=== PATIENT | female | born 1955 | race Caucasian/White ===

== ENCOUNTER 2023-11-11 17:00 | Emergency (ER) | payer MEDICARE, SELFPAY ==
[2023-11-11 17:02] VITALS: BP 162/68
[2023-11-11 17:06] VITALS: BMI 22.8
--- NOTE | 2023-11-11 17:37 | ED.GENMED ---
History of Present Illness
<Adeline Jimenez PA-C - Last Filed: 11/11/23 20:31>
General
Chief Complaint: Weakness
Source: patient
Exam Limitations: none
Time Seen by Provider: 11/11/23 17:30
Nursing documentation reviewed up to this point in time: agreed with
Travel History
Have you had any contact with someone who has COVID-19?: No
Do you have any symptoms of coronavirus? Fever > 100 degrees, chills, cough, shortness of breath, sore throat, loss of taste or smell, muscle aches, or headache?: No
History of Present Illness
History of Present Illness:
This is a 68-year-old female with a past medical history of previous lacunar infarct, postconcussive syndrome, sarcoidosis, kidney cancer in remission, Sjogren's syndrome presenting emergency department today with concerns of multiple weeks of
weakness, fatigue, and vertigo with walking. Patient states that he first noticed this a few weeks ago and since then has been progressively getting worse. Patient states that she felt the same way when she was diagnosed with a old stroke.
Patient denies any fevers, chills, shortness of breath, chest pain, abdominal pain, constipation, diarrhea. Patient also think she may be dehydrated. Patient states that she is also decreased appetite. Patient also has some mild associated
nausea. In terms of patient's vertigo, patient states that when walking around for prolonged period of time she will get sensation that the room is spinning but then when she sits and lays down this feeling will subside. Patient denies any recent
falls or any history of head trauma. Patient denies any neck pain patient states that she will also get bouts of blurry vision.
Past History
<Adeline Jimenez PA-C - Last Filed: 11/11/23 20:31>
Past History
ED Past Medical History: None
ED Past Surgical History: Gynecological
Social History
Tobacco: Non-smoker
Alcohol: None
Drug: None
Personal:
Living: with family
Review of Systems
<Adeline Jimenez PA-C - Last Filed: 11/11/23 20:31>
Review of Systems
All Other Systems: ROS reviewed and negative except as documented in HPI and ROS
Phy Exam
<Adeline Jimenez PA-C - Last Filed: 11/11/23 20:31>
Physical Exam
Physical Exam:
General: Patient is well appearing and in no acute distress; non-toxic
Skin: Warm and dry, no rashes or lesions
Head: Normocephalic, atraumatic
Eyes: Sclera non-icteric. EOMs intact. PERRLA. No nystagmus.
Cardiac: Regular rate and rhythm, no murmur
Peripheral Vascular: No lower extremity swelling or edema
Pulm: Normal respiratory effort, no wheezes, rales, rhonchi
Abdomen: No abdominal tenderness to palpation.
Neuro: CN II-XII intact, no focal neurologic deficits. Normal gait. Normal finger-nose, heel boyle testing.
Psychiatric: Appropriate mood and affect.
Course
<Adeline Jimenez PA-C - Last Filed: 11/11/23 20:31>
Orders/Labs/Results
Orders:
Orders
11/11/23 17:55
Ondansetron Injectable [Zofran] 4 mg IV NOW STA
11/11/23 18:04
Electrocardiogram (*1) Urgent
EKG- Treatment ONCE
11/11/23 18:08
Urinalysis Reflex To Culture Urgent
Date Specimen was Collected: 11/11/23
Time Specimen was Collected: 18:02
11/11/23 18:51
Add On- LAB Urgent
Tests Added?: TSH reflex T4
11/11/23 18:52
CT Head W/o Iv Contrast Urgent
Comment:
Reason For Exam: dizziness, blurry vision
Complete Blood Count/With Diff Urgent
Comprehensive Metabolic Panel Urgent
TSH Reflex To Free T4 Urgent
Comment: ADD ON
11/11/23 20:14
0.9% Sodium Chloride 500 ml [Nss] 500 ml IV BOLUS
Abnormal Lab Results
11/11/23
18:52
WBC 4.1 L 10^3/uL
(4.8-10.8)
Hct 36.3 L %
(37.0-47.0)
Monocytes % 12.5 H %
(1.7-9.3)
Sodium 134 L mmol/L
(135-145)
BUN 34 H mg/dl
(7-17)
11/11/23 18:52
11/11/23 18:52
Vital Signs
Initial and Last Documented VS:
Initial Vital Signs
Temp Pulse Resp BP Pulse Ox
98.4 F 66 16 162/68 98
11/11/23 17:02 11/11/23 17:02 11/11/23 17:02 11/11/23 17:02 11/11/23 17:02
Last Documented Vital Signs
Temp Pulse Resp BP Pulse Ox
98.4 F 66 16 162/68 98
11/11/23 17:02 11/11/23 17:02 11/11/23 17:02 11/11/23 17:02 11/11/23 17:02
<Adam Gann DO - Last Filed: 11/11/23 19:12>
Orders/Labs/Results
Orders:
Orders
11/11/23 17:55
Ondansetron Injectable [Zofran] 4 mg IV NOW STA
11/11/23 18:04
Electrocardiogram (*1) Urgent
EKG- Treatment ONCE
11/11/23 18:08
Urinalysis Reflex To Culture Urgent
Date Specimen was Collected: 11/11/23
Time Specimen was Collected: 18:02
11/11/23 18:51
Add On- LAB Urgent
Tests Added?: TSH reflex T4
11/11/23 18:52
CT Head W/o Iv Contrast Urgent
Comment:
Reason For Exam: dizziness, blurry vision
Complete Blood Count/With Diff Urgent
Comprehensive Metabolic Panel Urgent
TSH Reflex To Free T4 Urgent
Comment: ADD ON
11/11/23 20:14
0.9% Sodium Chloride 500 ml [Nss] 500 ml IV BOLUS
Abnormal Lab Results
11/11/23
18:52
WBC 4.1 L 10^3/uL
(4.8-10.8)
Hct 36.3 L %
(37.0-47.0)
Monocytes % 12.5 H %
(1.7-9.3)
Sodium 134 L mmol/L
(135-145)
BUN 34 H mg/dl
(7-17)
11/11/23 18:52
11/11/23 18:52
Vital Signs
Initial and Last Documented VS:
Initial Vital Signs
Temp Pulse Resp BP Pulse Ox
98.4 F 66 16 162/68 98
11/11/23 17:02 11/11/23 17:02 11/11/23 17:02 11/11/23 17:02 11/11/23 17:02
Last Documented Vital Signs
Temp Pulse Resp BP Pulse Ox
98.4 F 66 16 162/68 98
11/11/23 17:02 11/11/23 17:02 11/11/23 17:02 11/11/23 17:02 11/11/23 17:02
<Adeline Jimenez PA-C - Last Filed: 11/11/23 20:31>
MDM/Problems Addressed
Differential Diagnosis Includes:
Differentials include BPPV, anemia, dehydration, infection, acute intracranial hemorrhage, posterior circulation stroke, vestibular neuritis,
MDM/Problems Addressed:
Weakness, fatigue, dizziness:
This is a 68-year-old female with a past medical history of previous lacunar infarct, postconcussive syndrome, sarcoidosis, kidney cancer in remission, Sjogren's syndrome presenting emergency department today with concerns of multiple weeks of
weakness, fatigue, and vertigo with walking. Patient states that one day a few weeks ago, she just started to feel more tired with taking naps more. She states that she also started having vertigo when walking for longer periods of time that would
resolve at rest. Patient went to urgent care but was sent here because apparently, this is how she felt when she had a stroke in the past. When reviewing her previous records, it does not appear that she ever had any acute CVA. Patient states
that she was hospitalized for a stroke here at [facility]. When looking at this hospital stay, patient was admitted for persistent dizziness and postconcussive syndrome, had a stroke workup with MRI done which revealed a chronic lacunar
infarct but no acute abnormalities or concerns. Patient also has had many episodes of dizziness in the past as well and anxiety. Considering that she is not on focal on exam, is able to walk without any difficulties, is not actively nauseous or
vomiting currently, no indication for CTA at this time, patient somewhat dehydration, her BUN to creatinine show was bit on today, did give some IV fluids. Patient stable for discharge to follow-up with her primary
<Adeline Jimenez PA-C - Last Filed: 11/11/23 20:31>
*Critical Care Note
Total Time (30-74mins, 75-104mins- exclusive of procedures): Not Applicable
ED Attending Note
Scottlt;Adeline Jimenez PA-C - Last Filed: 11/11/23 20:31>
-
Portions of this chart may have been created with voice recognition software.� Occasional wrong word or��sound alike� substitutions may have occurred due to the inherent limitations of voice recognition software.
<Adam Gann DO - Last Filed: 11/11/23 19:12>
ED Attending Note
Patient seen and examined by attending physician: Yes
I performed the substantive portion of visit, reviewed & personally made and approve the management plan that is documented in note by myself or MARKUS.: Yes
ED Attending Note:
Patient is a 68-year-old female presents to the emergency department complaining fatigue, weakness and feeling lightheaded and dizzy. Patient states when she gets up from laying down or sitting to standing that she begins to feel lightheaded and
unsteady. Patient does feels washed out all the time. This is going on for a week or 2. Patient has a history of a lacunar infarct along with Sjogren syndrome as well as sarcoid. Patient has had the symptoms in the past and been admitted
approximately 4 years ago. Patient denies any fever or chills, nasal congestion or sore throat. Patient denies shortness of breath or cough. Patient denies chest pain or palpitations. Patient admits to decreased appetite but denies any nausea,
vomiting or diarrhea. Patient denies any melena or hematochezia. Patient denies any symptoms. Patient denies any ataxia, focal weakness, visual or speech difficulties. Patient denies any hair or skin changes. Patient denies any weight
changes. On physical exam patient does not appear to be in any distress. Heart is regular without murmur or gallop. Lungs are clear. Head is normocephalic and neck is supple. Abdomen soft nontender. Neurologically the patient is intact.
Patient has no cyanosis, edema or tenderness of the extremities. Will check labs and CT. I doubt that any etiology of becoming clear. Patient referred back to her family doctor.
Discharge Plan
Departure
Patient Disposition: Home (Routine Discharge)
Date of Disposition: 11/11/23
Time of Disposition: 20:20
Patient with high blood pressure during this ER visit?: Yes
Condition: Good
Discharge Problem:
Generalized weakness
Instructions: Fatigue (DC), Generalized Weakness (DC), BLOOD PRESSURE
Prescriptions:
New
meclizine 25 mg tablet
25 mg PO BID PRN (Reason: dizziness) Qty: 10 0RF
No Action
plecanatide [Trulance] 3 MG tablet
3 mg PO DAILY
fluoxetine [Prozac] 40 MG capsule
40 mg PO DAILY
alprazolam 0.25 MG tablet
0.25 mg PO Q8HPRN PRN (Reason: anxiety)
trazodone 100 MG tablet
100 mg PO HS
cannabidiol [Epidiolex] 1 UNIT solution
1 unit PO QPM PRN (Reason: sleep)
omega 0-obg-khg-fish oil 1,000 MG capsule
2,000 mg PO DAILY
atorvastatin 40 MG tablet
40 mg PO QPM Qty: 30 0RF
sennosides [senna] 1 TABLET tablet
1 tab PO HS Qty: 30 0RF
aspirin 81 MG tablet,chewable
81 mg PO DAILY Qty: 30 0RF
acetaminophen 325 MG tablet
650 mg PO Q4HPRN PRN (Reason: CH, mild pain, or temp >100.4F) Qty: 30 0RF
lisinopril 5 MG tablet
5 mg PO Daily Qty: 15 0RF
Referrals:
Ajit Haider DO [Family Provider] -
Activity Restrictions/Additional Instructions:
Your CT scan was negative for any acute intracranial abnormality.
Please follow-up with your primary care provider. Please return emergency department should you describes chest pain, shortness of breath, palpitations, decreased urinary output, burning with urination, fevers or chills, difficulty speaking,
confusion, weakness one-sided body versus the other, difficulty walking, vision loss, or any other signs or symptoms concerning to you.
You can try meclizine as needed for your vertigo symptoms. You can take one 25 mg tablet every 6-12 hours as needed.
Interventions
Interventions:
*Risk Screen - Suicide Last Done: 11/11/23 17:06
*General Assessment Last Done: 11/11/23 17:06
*Neglect/Abuse Screening Last Done: 11/11/23 17:06
ED- Cardiac Assessment Last Done: 11/11/23 17:05
ED- Neurological Assessment Last Done: 11/11/23 17:05
ED- Pulmonary Assessment Last Done: 11/11/23 17:05
Discharge Date and Time
Print Language: SLOVAK
[2023-11-11 18:18] LABS: Urine Albumin Negative (Neg - Trace); Urine Bilirubin Negative (Negative); Urine Character Clear (Clear); Urine Color Yellow; Urine Glucose Negative (Negative); Urine Ketone Negative (Negative); Urine Leukocyte Negative (Negative); Urine Nitrite Negative (Negative); Urine Occult Blood Negative (Negative); Urine Specific Gravity 1.015 (<1.030); Urine Urobilinogen Negative (Neg - 1+)
[2023-11-11] MEDS: ZOFRAN 4 MG IV (18:56)
[2023-11-11 19:01] LABS: % Basophils 0.5 % (0-2); % Eosinophils 2.2 % (0-6); % Immature Granulocytes 0.2 % (0-0.5); % Lymphocytes 30.5 % (20.5-51.1); % Monocytes 12.5 % (1.7-9.3); % Neutrophils 54.1 % (42.2-75.2); Absolute Eosinophils 0.1 10^3/uL (0-0.7); Absolute Lymphocytes 1.2 10^3/uL (1.2-3.4); Absolute Monocytes 0.5 10^3/uL (0.1-0.6); Absolute Neutrophils 2.2 10^3/uL (1.4-6.5); Hematocrit 36.3 % (37.0-47.0); Hemoglobin 12.9 g/dL (12.0-16.0); Mean Corp Hgb Conc. 35.5 g/dL (33.0-37.0); Mean Corpuscular Hgb 29.7 pg (27.0-31.0); Mean Corpuscular Volume 83.6 fL (81.0-99.0); Mean Platelet Volume 8.5 fL (7.4-10.4); Nucleated Red Blood Cells % 0 %; Platelet Count 164 10^3/uL (130-400); Red Blood Cell Count 4.34 10^6/uL (4.20-5.40); Red Cell Dist. Width 12.9 % (11.5-14.5); White Blood Cell Count 4.1 10^3/uL (4.8-10.8)
[2023-11-11 19:16] LABS: ALT (SGPT) 18 U/L (0-35); AST (SGOT) 32 U/L (14-36); Albumin 4.7 g/dl (3.5-5.0); Alkaline Phosphatase 73 U/L (38-126); Blood Urea Nitrogen 34 mg/dl (7-17); Calcium 9.9 mg/dl (8.4-10.2); Carbon Dioxide 23 mmol/L (22-30); Chloride 103 mmol/L (98-107); Estimated Creatinine Clearance 57 ml/min; Glucose 82 mg/dl (70-99); Potassium 4.2 mmol/L (3.5-5.1); Sodium 134 mmol/L (135-145); Total Bilirubin 0.5 mg/dl (0.2-1.3); Total Protein 6.9 g/dl (6.3-8.2); eGFR > 60.00
[2023-11-11 19:51] LABS: TSH Reflex To Free T4 3.59 uIU/ml (0.47-4.68)
[2023-11-11] MEDS: NSS 500 IV (20:25)
[2023-11-11 21:28] VITALS: BP 142/63
== END 2023-11-11 22:05 | disposition home or self-care (01) ==
LOC: EMR 17:00
PROVIDERS: Physician Assistant; EMERGENCY PHYSICIAN Emergency Medicine; FAMILY PHYSICIAN Family Medicine
DX: R53.1 Weakness (principal); D86.9 Sarcoidosis, unspecified; M35.00 Sjogren syndrome, unspecified
CPT/HCPCS: 99284; 96374; 96361; 70450; 80053; 81003; 84443; 85025; 93005

== ENCOUNTER 2025-01-13 05:08 | Observation (INO) | payer BC, SELFPAY ==
[2025-01-12 18:55] VITALS: BP 183/78
[2025-01-12 19:28] LABS: Hematocrit 38.3 % (37.0-47.0); Hemoglobin 12.8 g/dL (12.0-16.0); Mean Corp Hgb Conc. 33.4 g/dL (33.0-37.0); Mean Corpuscular Volume 88.2 fL (81.0-99.0); Nucleated Red Blood Cells % 0 %; Platelet Count 213 10^3/uL (130-400); Red Cell Dist. Width 14.3 % (11.5-14.5)
[2025-01-12 19:56] LABS: Blood Urea Nitrogen 32 mg/dl (7-17); Calcium 9.3 mg/dl (8.4-10.2); Carbon Dioxide 24 mmol/L (22-30); Chloride 105 mmol/L (98-107); Glucose 86 mg/dl (70-99); Sodium 136 mmol/L (135-145); eGFR > 60.00
[2025-01-12 19:59] LABS: Troponin I < 0.012 ng/ml
[2025-01-12 21:01] VITALS: BP 155/67
[2025-01-12 21:58] VITALS: BMI 24.3
[2025-01-12 22:00] VITALS: BP 168/72
[2025-01-12 22:01] VITALS: BP 170/65
--- NOTE | 2025-01-12 22:11 | ED.GENMED ---
History of Present Illness
General
Chief Complaint: Breathing Problem
Source: patient and spouse
Exam Limitations: none
Time Seen by Provider: 01/12/25 21:57
Nursing documentation reviewed up to this point in time: agreed with
History of Present Illness
History of Present Illness:
69-year-old female with history as noted presents to the ER for evaluation of shortness of breath. Patient reports onset of symptoms about 3 weeks ago she says initially she was having some mild shortness of breath mainly at nighttime associated
with some heaviness in her chest. Over the past 3 to 4 days patient reports shortness of breath has gotten progressively worse and now she is having severe exertional symptoms. She says that today she could only walk up a short flight of stairs or
walk a few steps before she had shortness of breath to the extent that she had to stop and rest. She has had some mild heaviness in her chest and says that today she has had some right sided sharper pains with inspiration. She denies any cough.
She denies any fevers or chills or URI symptoms. She denies any swelling or pain in the legs. She did initially present to urgent care where she had chest x-ray that she says she was told there was 'blunting' on the x-ray and she was referred to
the ER. She denies any recent travel. She says that she has a history of Takotsubo cardiomyopathy years ago but has not had any heart issues since. She also has history of pneumothorax. She denies any history of DVT/PE. She does say that she
has had RSV infections in the past and presented mainly with shortness of breath rather than URI symptoms.
Past History
Past History
ED Past Medical History: None
ED Past Surgical History: Gynecological
Social History
Tobacco: Non-smoker
Alcohol: None
Drug: None
Personal:
Living: with family
Review of Systems
Review of Systems
All Other Systems: ROS reviewed and negative except as documented in HPI and ROS
Constitutional: Reports fatigue; Denies fever or chills
EENT: Denies sore throat or runny nose
Respiratory: Reports trouble breathing; Denies cough
Cardiac: Reports chest pain; Denies palpitations
ABD/GI: Denies abdominal pain
: Denies flank pain
Musculoskeletal: Denies neck pain or back pain
Neurological: Reports dizzy; Denies headache
Phy Exam
Physical Exam
Physical Exam:
General: Awake, alert, oriented x3; no acute distress
Head: Normocephalic, atraumatic
Eyes: Conjunctiva normal, sclera anicteric
Throat: Airway intact, handling secretions
Neck: Trachea midline, no JVD
Lungs: Clear to auscultation bilaterally, no wheezing, rales, rhonchi; no tachypnea, no hypoxia
Heart: Regular rate and rhythm, no murmurs, gallops, or rubs appreciated
Neuro: Grossly intact
Skin: Warm and dry
Extremities: No edema in extremities, equal pulses in all extremities
Scores
Heart Failure Risk
Heart Failure Risk Score: Not Applicable
Heart Score for Chest Pain Patients
STEMI patient?: Not applicable
Withdrawal Assessment of Alcohol
Withdrawal Assessment Completed?: Not applicable
Course
Orders/Labs/Results
Orders:
Orders
01/12/25 19:01
Electrocardiogram (*1) Urgent
Reason for Study: Other
Other Reason for Exam: Respiratory Distress
Cardiac Monitoring- Treatment ONCE
EKG- Treatment ONCE
IV Insert/Care/Rem.- Treatment PRN
CR Chest - 2 Views Urgent
Comment:
Reason For Exam: respiratory distress
O2 Therapy [RESP] Urgent
Titrate/Wean O2 to maintain O2 sat greater than (%): 93
Special Instructions: TO MAINTAIN CONTINUOUS O2 SATS >/= 93%
Pulse Ox/cont/shift [RESP] Urgent
Quantity: 1
Special Instructions: continuous pulse ox
01/12/25 19:08
Complete Blood Count/With Diff Urgent
NT-proBNP Urgent
Troponin I Urgent
01/12/25 19:11
Basic Metabolic Panel Urgent
01/12/25 23:01
COVID-19 Antigen Urgent
Source: Nasal Swab
Influenza A+B Rapid Molecular Urgent
PEACE Source: Nasal Swab
Specimen Description:
RSV [Respiratory Syncytial Virus] Urgent
PEACE Source: Nasal Swab
Specimen Description:
Date Specimen was Collected: 01/12/25
Time Specimen was Collected: 23:00
01/12/25 23:09
0.9% Sodium Chloride 1000 ml [Nss] 1,000 ml IV BOLUS
01/12/25 23:23
Troponin I Urgent
01/13/25
CT Chest PE Study Urgent
Reason For Exam: sob, CP
01/13/25 00:00
Acetaminophen [Tylenol] 650 mg .ROUTE .STK-MED ONE
01/13/25 00:01
Acetaminophen [Tylenol] 650 mg PO NOW STA
01/13/25 01:08
Doxycycline [Vibramycin] 100 mg PO NOW STA
Abnormal Lab Results
01/12/25 01/12/25
19:08 19:11
Absolute Monos (auto) 0.7 H 10^3/uL
(0.1-0.6)
Monocytes % 12.6 H %
(1.7-9.3)
BUN 32 H mg/dl
(7-17)
01/12/25 19:08
01/12/25 19:11
Vital Signs
Initial and Last Documented VS:
Initial Vital Signs
Temp Pulse Resp BP Pulse Ox
37.1 C 63 20 183/78 97
01/12/25 18:55 01/12/25 18:55 01/12/25 18:55 01/12/25 18:55 01/12/25 18:55
Last Documented Vital Signs
Temp Pulse Resp BP Pulse Ox
36.7 C 64 15 170/65 96
01/12/25 21:58 01/12/25 22:30 01/12/25 22:30 01/12/25 22:01 01/12/25 22:30
Procedures
IV Access
Indication: RN unable to obtain and Physician skill needed
Performed by:: Miguel Burns MD
Site:: right AC
Gauge:: 18G
Ultrasound Guidance: Yes
MDM/Problems Addressed
Differential Diagnosis Includes:
Pneumonia, pneumothorax, bronchitis, congestive heart failure, anemia, pulmonary embolism, angina/ACS
MDM/Problems Addressed:
69-year-old female presents for evaluation of shortness of breath�started 3 weeks ago mainly when sleeping/laying flat but over the past few days progressed to severe exertional symptoms. Also having some chest heaviness and today some sharp right
sided chest pains. Hypertensive but otherwise normal vitals. Physical exam as above�lungs notably clear. She had initial testing done in triage including a CBC which showed no anemia or other clinically significant abnormalities. CMP no acute
abnormalities. Initial troponin undetectable. proBNP marginal. Chest x-ray shows no acute disease. EKG shows sinus rhythm. Will plan to repeat troponin. Will check CT chest to rule out pulmonary embolism. Monitor and reassess after the above.
Repeat troponin undetectable. CT chest reviewed: Negative for pulmonary embolism, no dissection. Centrilobular nodules in the bilateral lower lobes and within the right middle lobe likely secondary to infection or aspiration and mild thickening of
the lower lobe airways. Likely mild pneumonitis versus pneumonia. Suspect this likely accounts for her symptoms as she said she had similar symptoms with RSV/viral infection in the past. Angina also a consideration especially given progressive
exertional symptoms and poor R wave progression on EKG which is new but with negative enzymes lower suspicion. Clinical reassessment patient is not hypoxic but she is mildly tachypneic and when she got up to walk to the bathroom was extremely
dyspneic after just a few steps. I do think she should be admitted for continued observation and treatment here in the hospital for this reason. Case discussed with hospitalist for admission.
*Radiology
Radiology exam reviewed: preliminary read by ED provider and radiology read reviewed
*Pulse Oximetry
SaO2: 97
Oxygen Mode of Delivery: Room air
Patient hypoxic: no (97%)
*EKG
Interpreted by ED Provider?: Yes
Heart Rate: 61
Rate: normal
Rhythm: sinus
Mer[place]: normal axis
Interval: normal interval
QRS Pattern: normal QRS
Ischemia: other (Nonspecific T wave abnormalities)
*Critical Care Note
Total Time (30-74mins, 75-104mins- exclusive of procedures): Not Applicable
Data Reviewed
Source: patient, records and spouse
Patient Management
Discussion with other providers: Hospitalist (Discussed with hospitalist)
Escalation/DeEscalation of care consider admission/obs:
Admission indicated
ED Attending Note
-
Portions of this chart may have been created with voice recognition software.� Occasional wrong word or��sound alike� substitutions may have occurred due to the inherent limitations of voice recognition software.
Discharge Plan
Departure
Patient Disposition: Admit
Date of Disposition: 01/13/25
Time of Disposition: 01:15
Admit to doctor: Christian
Presentation/result/management discussed w/ accepting MD/DO: Hospitalist
Discharge Problem:
Pneumonia, Dyspnea
Prescriptions:
No Action
plecanatide [Trulance] 3 MG tablet
3 mg PO DAILY
fluoxetine [Prozac] 40 MG capsule
40 mg PO DAILY
alprazolam 0.25 MG tablet
0.25 mg PO Q8HPRN PRN (Reason: anxiety)
trazodone 100 MG tablet
100 mg PO HS
cannabidiol [Epidiolex] 1 UNIT solution
1 unit PO QPM PRN (Reason: sleep)
omega 3-dhr-are-fish oil 1,000 MG capsule
2,000 mg PO DAILY
atorvastatin 40 MG tablet
40 mg PO QPM Qty: 30 0RF
sennosides [senna] 1 TABLET tablet
1 tab PO HS Qty: 30 0RF
aspirin 81 MG tablet,chewable
81 mg PO DAILY Qty: 30 0RF
acetaminophen 325 MG tablet
650 mg PO Q4HPRN PRN (Reason: CH, mild pain, or temp >100.4F) Qty: 30 0RF
lisinopril 5 MG tablet
5 mg PO Daily Qty: 15 0RF
meclizine 25 mg tablet
25 mg PO BID PRN (Reason: dizziness) Qty: 10 0RF
Referrals:
Davie Roth MD [Active, Cardiology] - Call in 1-3 days for appt
Ajit Haider DO [Family Provider, Family Practice]
Activity Restrictions/Additional Instructions:
Please return if you have any worsening symptoms or if you develop any other symptoms particularly if you start to develop any chest pain. 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
Thank you for visiting the Emergency Department at [facility].
1. Please schedule a follow up appointment as directed. Call first thing tomorrow morning to make an appointment.
2. If indicated, please take your medications as instructed and indicated on discharge paperwork.
3. If any of your symptoms do not improve, or persist, or become more severe within 6-12 hours, please return to the emergency department for further care.
4. Please return to the emergency department if you develop a headache, neck pain/stiffness, fever greater than 100.4F, chest pain, shortness of breath, persistent nausea, vomiting, slurred speech, difficulty walking, numbness/tingling, weakness,
signs of infection or any other symptoms that are worrisome to you.
Please call [phone] if you have any questions.
Interventions
Interventions:
*Risk Screen - Suicide Last Done: 01/12/25 18:55
*General Assessment Last Done: 01/12/25 18:55
*Neglect/Abuse Screening Last Done: 01/12/25 18:55
*ED- Fall Risk Assessment Last Done: 01/12/25 18:55
*ED COVID-19 Vaccine History Last Done: 01/12/25 18:55
ED- Cardiac Assessment Last Done: 01/12/25 21:59
ED- Pulmonary Assessment Last Done: 01/12/25 21:59
Discharge Date and Time
Print Language: SUDANESE
[2025-01-12 23:00] VITALS: BP 145/59
[2025-01-12 23:24] LABS: COVID-19 Antigen Negative (Negative)
[2025-01-12] MEDS: NSS 1000 IV (23:24)
[2025-01-12 23:59] LABS: Troponin I < 0.012 ng/ml
[2025-01-13] VITALS (15 sets, daily range): BP systolic 121–160; BP diastolic 45–91; BMI 22.7
[2025-01-13] MEDS: TYLENOL 650 MG PO ×2 (00:02→10:49)
[2025-01-13] MEDS: VIBRAMYCIN 100 MG PO ×3 (01:21→20:59)
--- NOTE | 2025-01-13 04:47 | HPS.HSE ---
Family Physician
-
Family Physician: Ajit Haider
Chief Complaint
-
Chest Tightness / SOB
History of Present Illness
Patient is a 69y F with PMH significant for renal cell cancer, L foot osteomyelitis and cardiomyopathy who presents to ED complaining of chest tightness and SOB. Patient states that symptoms have been present for several weeks - but gradually
getting worse in that time. She reports a sense of chest tightness - especially when lying flat or when walking / exerting herself. She has noted progressive SOB at these times as well. No cough, fevers / chills, GI or complaints. Patient
reports similar symptoms a few years ago due to RSV infection (also without cough, etc at that time).
Patient has history of Takotsubo's cardiomyopathy, spontaneous pneumothorax (x 2) - though no recent issues with either.
Medical History
Past Medical History
Past Medical History: Reports Other
Additional Past Medical History:
Takotsubo's Cardiomyopathy
Renal Cell Cancer
Anxiety / Depression
Left Foot Osteomyelitis
Spontaneous Pneumothorax x 2
Sjogren's Syndrome
Past Surgical History: Reports Other
Additional Past Surgical History:
Left Nephrectomy
Right Thoracotomy
Cervical Fusion
Left Oophorectomy
Left Foot Surgery x 9
Cholecystectomy
Appendectomy
Hernia repair
Mediastinoscopy
Breast Biopsy
Social History
Tobacco: Former Smoker (Quit smoking in 1988)
Alcohol: None
Drug: None
Family History
Family History: Not pertinent
Allergies / Home Medications
Allergies reflects when Allergies were last updated in [facility].
Home Medications with original date entered in [facility]
Allergy/Medication List:
Allergies
Allergy/AdvReac Type Severity Reaction Status Date / Time
albuterol Allergy Unknown Verified 01/12/25 18:55
codeine AdvReac panic Verified 08/21/25 18:55
attacks
hydrocodone (From Vicodin) AdvReac Nausea / Verified 01/12/25 18:55
Vomiting
Home Medications
alprazolam 0.25 mg tablet 0.25 mg PO Q8HPRN PRN anxiety 02/11/20
fluoxetine 40 mg capsule (Prozac) 60 mg PO DAILY Mental Health/Anxiety 02/11/20
trazodone 100 mg tablet 100 mg PO HS Sleep 02/11/20
acetaminophen 325 mg tablet 650 mg (2 x 325 mg) PO Q4HPRN PRN CH, mild pain, or temp >100.4F #30 tabs 02/21/20
Benadryl 25 mg PO HS 01/13/25
Review of Systems
-
History Source: Patient
A 12 point ROS was completed and negative except as noted: Yes
Constitutional: Reports Fatigue; Denies Fever or Chills
EENT: Denies Sore Throat
Respiratory: Reports Trouble Breathing; Denies Cough or Hemoptysis
Cardiac: Reports Chest Pain; Denies Diaphoresis, Palpitations or Syncope
Abdomen/GI: Denies Abdominal Pain, Nausea, Vomiting or Diarrhea
: Denies Dysuria, Frequency or Flank Pain
Musculoskeletal: Denies Joint Pain or Edema
Neurological: Denies Dizzy or Headache
Psych: Denies Depression or Anxiety
Physical Exam
Vital Signs
Vital Signs
Temp Pulse Resp BP Pulse Ox
98.1 F 61 29 140/59 94
01/12/25 21:58 01/13/25 03:35 01/13/25 03:35 01/13/25 03:35 01/13/25 03:35
Physical Exam
General: Other (69y F in no acute distress.)
HEENT: Moist mucous membranes and PERRLA
Respiratory: Other (Prolonged expiratory phase. Few scattered rales. No wheezing.)
Cardiac: S1/S2 and Regular Rhythm; No Murmur
GI: Soft, Non Tender, Non Distended and Normal Bowel Sounds
Musculoskeletal: No Clubbing, No Cyanosis and No Edema
Neuro: AO x 3
Laboratory Results
-
01/12/25 19:08
01/12/25 19:11
Laboratory Results
Total Bilirubin Cancelled 01/12/25 19:11
AST Cancelled 01/12/25 19:11
ALT Cancelled 01/12/25 19:11
Alkaline Phosphatase Cancelled 01/12/25 19:11
Troponin I < 0.012 ng/ml 01/12/25 23:23
Impression/Plan
-
A/P: Patient is a 69y F with PMH significant for renal cell cancer, anxiety / depression and Takotsubo's cardiomyopathy who presents to ED complaining of chest tightness and SOB.
Chest Tightness / SOB
- Observe overnight for further evaluation and treatment.
- Symptoms present x weeks and have been progressive.
- Trop undetectable x 2 thus far and EKG unremarkable. Doubt ACS.
- Check Echo given gradual symptoms, prior cardiomyopathy and lack of apparent infectious characteristics / complaints.
- Monitor for any new / worsening symptoms
- Supportive care, nebs, O2, etc.
- CT scan shows some mild inflammatory changes in the lower lobes c/w infection, inflammation, aspiration, etc.
Anxiety / Depression
- Stable. Continue usual med regimen.
History of Renal Cell Carcinoma
History of Osteomyelitis
- Remote. s/p Nephrectomy, 9 foot surgeries, etc. No acute issues.
DVT Prophylaxis: Lovenox
Code Status: Full
--- NOTE | 2025-01-13 08:37 | W.PN.HOSP.TC ---
Today's Communication/Plan
-
see PN
Assessment / Plan
Assessment / Plan
69yo F with PMHX of R spontaneous pneumothorax, lung nodules, anxiety, Takotsubo CM came with 3 weeks of worsening dyspnea, pronounced on walking up the stairs and when laying flat.
A/P:
#Dypnea with acute hypoxic insufficiency on admission
#Orthopnea
#Hx of R pneumothorax
#Hx of lung nodules
Lung nodules followed by PCP for 5 years now without patient reported changes
No wheezing on exam
Wean off O2
pro-BNP 548, Echo
telemetry without clinically significant arrhythmia
Troponin undetectable, might beneft from tress test
very unclear picture of pulmonary VS cardiac symptoms with CT finding s and PMHx of cardiac problems. Reasonable to get Cardiology consult
#Anxiety d/o
#Hx of CVA
cont home meds
DVt ppx lovenox
Full code
I have spent at least 58 min reviewing chart, test results, communication with consultants and providing direct patient care
Anticipated Discharge: 24 - 48 hours
Subjective/Interval History
-
Date of Service: January 13, 2025
Objective Data
-
Vital Signs:
Vital Signs
Temp Pulse Resp BP Pulse Ox
98.1 F 59 21 145/60 99
01/12/25 21:58 01/13/25 07:15 01/13/25 07:15 01/13/25 06:00 01/13/25 07:15
Review of Systems
-
History Source: Patient
All other systems: Reviewed and negative
Physical Exam
-
General: No Apparent Distress
HEENT: Normocephalic
Respiratory: Clear to Auscultation; Negative Wheezes or Crackles
Cardiac: Regular Rhythm
Genito-urinary: No Costovertebral Tender
Musculoskeletal: No Clubbing, No Cyanosis and No Edema
Neuro: Awake, Alert, Oriented and AO x 3
Psych: Calm
[2025-01-13] MEDS: LOW STRENGTH ASPIRIN 81 MG PO (10:36)
[2025-01-13] MEDS: PROZAC 60 MG PO (10:36)
--- NOTE | 2025-01-13 13:21 | CM ---
CM reviewed chart, patient seen bedside, initial assessment completed. Patient resides with her in a two level home, two steps to enter, first floor bedroom/bathroom set up. Patient denies DME, currently on O2. Patient reports VN in past
after RSV, SNF in past (2009) after leg fracture. Patient confirms PCP Ajit Haider, pharmacy [facility], confirms prescription coverage. Patient denies insecurities at home. REID form verbally reviewed, provided with copy, placed in
chart. Patient requesting Pulmonary consult, update to Hospitalist. CM will continue to follow for all discharge planning needs.
Plan; home with spouse, no needs anticipated
--- NOTE | 2025-01-13 14:04 | CON.CAR ---
Addendum entered and electronically signed by Anibal Verma MD 01/13/25 15:16:
I saw and examined the patient.
The Production Control Coordinator's note was reviewed and I agree with the note.
Comment:
GEN: No distress, awake, Ox3, anxious
HEENT: supple, anicteric, mmm
LUNGS: scatt rhonchi
CV: Reg, S1/S2, 1/6 syst LSB, no gallop
ABD: soft, BS+, NT/ND
EXT: No edema
NEURO: Gross non-focal
SKIN: No rash
Plan:
69-year-old female with past medical history of Takotsubo cardiomyopathy, renal cell carcinoma, anxiety, and Sjogren syndrome presents with progressive shortness of breath and chest heaviness. She has had 2 weeks of symptoms of they have slowly
worsened. She was of urgent care and then was referred to the emergency room. Her weight is going up about 7 pounds. Previously had Takotsubo's cardiomyopathy in 2013 but is off all cardiac medications.
CT scan of the chest had no pulmonary embolism but possible bronchitis/right lung scarring. Cardi troponin is negative x 2 and proBNP 548.
Echocardiogram today read by myself reveals EF of 66% with normal LV and RV function. There is mild to moderate aortic regurgitation and mild mitral regurgitation, but pulmonary artery pressures were normal.
I suspect her symptoms are more pulmonary than cardiac related. We did agree to a trial of Lasix 20 mg IV x 1 to see if this helps her. CT scan though did not suggest significant volume overload.
EKG overall unremarkable 2 negative troponins. Could consider outpatient Lexiscan nuclear stress testing.
Original Note:
Consultation
Consultation Request
Date/Time Consultation Requested: 01/13/2025
Date/Time Consultation Performed: 01/13/2025
Requesting Provider: Dr. Mohamud
Performing Provider: Ann Marie Sweet PA-C for Dr. Verma
Reason for Consultation: CHAN, concern for heart failure
Medical History
-
History of Present Illness:
HPI: Shante is a 69-year-old female with past medical history of Takotsubo cardiomyopathy, renal cell carcinoma status post left nephrectomy, anxiety, and Sjogren syndrome. She presented to [facility] ER for evaluation after being seen at the urgent
care for progressively worsening shortness of breath and chest heaviness. Symptoms have been ongoing for the past 2 weeks, but acutely worsened over the past few days. She reports at urgent care, she was told she likely had pneumonia, so was
referred to the emergency room for further evaluation. She notes her shortness of breath and chest tightness happens typically with exerting herself, walking up a flight of steps, or when lying flat. These are unusual for her as she is highly
active at baseline. She also notes her weight has gone up approximately 7 pounds. Weight typically is around 137 pounds, and weight today in ER was 145 pounds. She does not follow regularly with cardiology. Was followed by cardiology at
[facility] following episode of what she reports was cardiac arrest in the setting of Takotsubo cardiomyopathy in 2012, however states has been stable for many years and is no longer followed by cardiology, managed primarily by her PCP. She is not
on any cardiac medications. In ER, chest x-ray without acute cardiopulmonary process, CT of chest without evidence of PE, however did appear consistent with possible bronchitis. Flu, RSV, and COVID testing negative. Lab work revealed negative
troponin x 2 with proBNP 548. EKG reviewed, sinus rhythm with no acute ischemic changes noted. Cardiology consulted for evaluation given concern for possible cardiac component of symptoms. At this time, sitting up in bed she feels well, but still
does have some orthopnea when lying flat
PMH:
Takotsubo cardiomyopathy
Renal cell cancer status post L nephrectomy
Anxiety
h/o spontaneous pneumothorax x 2
Sjogren's syndrome
Past Medical History
Past Medical History: Other (In HPI)
Past Surgical History: Other (L nephrectomy, left oophorectomy, cholecystectomy, appendectomy, hernia repair, breast biopsy, cervical fusion)
Social History
Tobacco: Former Smoker
Alcohol: None
Drug: None
Personal:
Living: With Family
Employment: Retired
Family History
Family History: Reviewed & Not Pertinent
Allergies / Home Medications
Allergy/AdvReac Type Severity Reaction Status Date / Time
albuterol Allergy Unknown Verified 01/12/25 18:55
codeine AdvReac panic Verified 01/12/25 18:55
attacks
hydrocodone (From Vicodin) AdvReac Nausea / Verified 01/12/25 18:55
Vomiting
�Medication �Instructions �Recorded �Confirmed �Type
alprazolam 0.25 mg tablet 0.25 mg PO Q8HPRN PRN anxiety 02/11/20 01/13/25 History
fluoxetine 40 mg capsule (Prozac) 60 mg PO DAILY Mental 02/11/20 01/13/25 History
Health/Anxiety
trazodone 100 mg tablet 100 mg PO HS Sleep 02/11/20 01/13/25 History
acetaminophen 325 mg tablet 650 mg (2 x 325 mg) PO Q4HPRN PRN 02/21/20 01/13/25 Rx
CH, mild pain, or temp >100.4F #30
tabs
Benadryl 25 mg PO HS 01/13/25 01/13/25 History
Review of Systems
-
History Source: Patient
All other systems: Negative unless noted
Physical Exam
Vital Signs
Temp Pulse Resp BP Pulse Ox
98.1 F 59 18 154/63 99
01/13/25 11:00 01/13/25 11:00 01/13/25 11:00 01/13/25 11:00 01/13/25 11:00
Lab Results
01/12/25 19:08
01/12/25 19:11
Troponin I < 0.012 ng/ml 01/12/25 23:23
Dal-J-Uxifbgqrlfp Pept 548 pg/ml 01/12/25 19:08
Physical Exam
General: Well Developed, Well Nourished and No Apparent Distress
HEENT: Normocephalic, Anicteric and Moist Mucous Membranes
Respiratory: Clear and Non Labored Respirations
Cardiac: S1/S2 and Regular Rhythm
Musculoskeletal: No Clubbing, No Cyanosis and Edema
Skin: Warm and Dry
Neuro: AO x 3 and Nonfocal/Grossly Intact
Psych: Calm
Impression / Plan
-
PCP: Dr. Haider
Cardiology: Previously seen at [facility], no recent follow up
Impression:
Presented with SOB, orthopnea, weight gain
Takotsubo cardiomyopathy
Renal cell cancer status post L nephrectomy
Anxiety
h/o spontaneous pneumothorax x 2
Sjogren's syndrome
Echo 01/13/2025: EF 66%, no RWMA, mild to moderate AR, mild MR, trace TR, estimated PAP 20 mmHg
Plan:
-Presented with orthopnea, CHAN, and weight gain. Cardiology consulted given concern for possible cardiac component to symptoms. proBNP not significantly elevated. Chest x-ray without evidence of heart failure
-She has history of Takotsubo cardiomyopathy, however reports she has been stable from a cardiac standpoint for many years and is no longer followed by cardiology. She is no longer on any cardiac medications as outpatient
-Weight of 145 pounds is up approximately 7 pounds from her usual dry weight. Does feel that she has some edema in her ankles. Will trial one-time dose of IV Lasix and assess response.
-Creatinine stable at 0.7. Follow closely given history of renal cell carcinoma with nephrectomy.
-Troponin negative x 2. No chest pain noted.
-Echo 01/13/2025 showed preserved EF with mild to moderate AR as noted above.
-EKG stable, sinus rhythm with no acute ischemic changes noted. No arrhythmias noted on telemetry.
-Continue antibiotics per primary service. Flu, COVID, and RSV testing negative
-On 2L NC. Wean as able.
HPI: Shante is a 69-year-old female with past medical history of Takotsubo cardiomyopathy, renal cell carcinoma status post left nephrectomy, anxiety, and Sjogren syndrome. She presented to [facility] ER for evaluation after being seen at the urgent
care for progressively worsening shortness of breath and chest heaviness. Symptoms have been ongoing for the past 2 weeks, but acutely worsened over the past few days. She reports at urgent care, she was told she likely had pneumonia, so was
referred to the emergency room for further evaluation. She notes her shortness of breath and chest tightness happens typically with exerting herself, walking up a flight of steps, or when lying flat. These are unusual for her as she is highly
active at baseline. She also notes her weight has gone up approximately 7 pounds. Weight typically is around 137 pounds, and weight today in ER was 145 pounds. She does not follow regularly with cardiology. Was followed by cardiology at
[facility] following episode of what she reports was cardiac arrest in the setting of Takotsubo cardiomyopathy in 2012, however states has been stable for many years and is no longer followed by cardiology, managed primarily by her PCP. She is not
on any cardiac medications. In ER, chest x-ray without acute cardiopulmonary process, CT of chest without evidence of PE, however did appear consistent with possible bronchitis. Flu, RSV, and COVID testing negative. Lab work revealed negative
troponin x 2 with proBNP 548. EKG reviewed, sinus rhythm with no acute ischemic changes noted. Cardiology consulted for evaluation given concern for possible cardiac component of symptoms. At this time, sitting up in bed she feels well, but still
does have some orthopnea when lying flat
Data Reviewed
-
EKG: Tracing Personally Visualized and interpreted
Radiology: Report Reviewed by me
CT Scan: Report Reviewed by me
Labs: Labs Reviewed by me
Old Records: Reviewed
--- NOTE | 2025-01-13 14:40 | CON.PUL ---
Consultation
Consultation Request
Date/Time Consultation Requested: 01/13/25-2:45 PM
Date/Time Consultation Performed: 01/13/25-4 PM
Requesting Provider: hospitalist
Performing Provider: , Dr. Abdi
Reason for Consultation: , shortness of breath
Medical History
-
Chief Complaint: , shortness of breath
History of Present Illness:
69-year-old former smoking female with a history of renal cell carcinoma, left foot osteomyelitis, cardiomyopathy who presented with shortness of breath and chest tightness and it is unclear whether there was cardiac or pulmonary etiologies to her
shortness of breath-pulmonary was consulted to assess if there are pulmonary causes of her shortness of breath 01/13/25.. She usually works out and has not had respiratory problems besides her 2 spontaneous pneumothoraxes on the same side eventually
with surgery and an RSV infection that led her to have significant shortness of breath several years ago until last couple days. She usually goes to the gym and she had severe shortness of breath with minimal exertion. She felt lightheaded. She
had some chest pressures. When she stood up she was very short of breath. She had some chest pain but not overt pleurisy. Did not complain of any abdominal pain, chest congestion, productive cough, fevers, chills, night sweats, and had some leg
swelling that she is not used to. She was given Lasix and her leg swelling is improved. She has no focal weakness.
Past Medical History
Past Medical History: None ( Cardiomyopathy. Renal cell carcinoma. Anxiety/depression. Spontaneous pneumothorax �2. Former smoker. Sjogren syndrome. Left foot osteomyelitis. Left nephrectomy. Right thoracotomy. Cervical fusion. Left
oophorectomy. Left foot surgery. Cholecystectomy. Appendectomy. Hernia repair. )
Past Surgical History: Other ( Mediastinoscopy. Breast biopsy.)
Social History
Tobacco: Former Smoker ( Quit in 1988)
Alcohol: None
Drug: None
Living: With Family
Occupational Exposures: . No known asbestos exposure
Environmental Exposures: . No known tuberculosis exposure
Family History
Family History: Reviewed & Not Pertinent (No family history of lung disease)
Allergies / Home Medications
Allergies
Allergy/AdvReac Type Severity Reaction Status Date / Time
albuterol Allergy Unknown Verified 01/12/25 18:55
codeine AdvReac panic Verified 01/12/25 18:55
attacks
hydrocodone (From Vicodin) AdvReac Nausea / Verified 01/12/25 18:55
Vomiting
Home Medications
�Medication �Instructions �Recorded �Confirmed �Last Taken �Type
alprazolam 0.25 mg tablet 0.25 mg PO Q8HPRN PRN anxiety 02/11/20 01/13/25 Unknown History
fluoxetine 40 mg capsule (Prozac) 60 mg PO DAILY Mental 02/11/20 01/13/25 01/11/25 History
Health/Anxiety
trazodone 100 mg tablet 100 mg PO HS Sleep 02/11/20 01/13/25 01/11/25 History
acetaminophen 325 mg tablet 650 mg (2 x 325 mg) PO Q4HPRN PRN 02/21/20 01/13/25 01/13/25 Rx
CH, mild pain, or temp >100.4F #30
tabs
Benadryl 25 mg PO HS 01/13/25 01/13/25 01/11/25 History
Review of Systems
-
Unable to Obtain full review of systems at this time due to: Other (Per HPI)
Vitals / Labs / Diagnostic Testing
Vital Signs
Temp Pulse Resp BP Pulse Ox
98.1 F 59 18 154/63 99
01/13/25 11:00 01/13/25 11:00 01/13/25 11:00 01/13/25 11:00 01/13/25 11:00
Lab Data
01/12/25 19:08
01/12/25 19:11
Microbiology
01/12/25 23:01 Nasal Swab Respiratory Syncytial Virus Ag - Final
Negative for Respiratory Syncytial Virus.
A false negative result may be obtained with a specimen
collected early in the acute phase. If symptoms persist, a
new specimen should be tested.
01/12/25 23:01 Nasal Swab Influenza Types A & B (KRIS) - Final
Negative for Influenza A & B, NAAT
Negative results must be combined with clinical observations
and patient history.
Nucleic Acid Amplification test (NAAT)performed on the
[employer] platform.
Diagnostic Testing:
Physical Exam
-
Exam:
HEENT atraumatic normocephalic and anicteric. Heart was regular without murmur. Chest was clear without wheezes or crackles. Integument without rashes or icterus. Neurologic exam without weakness or numbness. Abdomen soft and nondistended.
The patient had no JVD, cyanosis, clubbing or edema.
Assessment
-
69-year-old former smoking female with a history of renal cell carcinoma, left foot osteomyelitis, cardiomyopathy who presented with shortness of breath and chest tightness and it is unclear whether there was cardiac or pulmonary etiologies to her
shortness of breath-pulmonary was consulted to assess if there are pulmonary causes of her shortness of breath 01/13/25.
Chest tightness and shortness of breath
Bronchitis
Asthma suspected with acute exacerbation
Conditions present prior to admission:
Cardiomyopathy.
Renal cell carcinoma.
Anxiety/depression.
Spontaneous pneumothorax �2.
Former smoker.
Sjogren syndrome.
Left foot osteomyelitis.
Left nephrectomy. Right thoracotomy. Cervical fusion. Left oophorectomy. Left foot surgery. Cholecystectomy. Appendectomy. Hernia repair. MediastinoscopyBreast biopsy
Plan
History and objective data available suggest possible underlying reactive airways/asthma with recurrent bronchitis-significant signs and symptoms of suspected pulmonary embolism-severe shortness of breath with minimal exertion, lightheadedness and
chest pain, however, CT chest negative for central pulmonary emboli
Supplemental oxygen as needed.
Nebulizers - Has shaking with albuterol, begin ipratropium bromide and Pulmicort nebulizers, Xopenex no longer available in the hospital
Observe off steroids for now-does have some forced end expiratory wheezing may have a component of asthma and ultimately might require a course of steroids
VQ scan in the a.m.
Bedside PFT
Check cultures.
Sputum culture if able.
Continue antibiotics-on doxycycline-condition finite course.
Cardiology evaluation pending
Diuresis as tolerated-suspect euvolemic
Had significant leg swelling now improved with Lasix-check lower extremity ultrasound to be completed
DVT prophylaxis-on Lovenox.
Nutrition
Early mobilization.
Outpatient pulmonary follow-up, including full PFTs and follow-up CT chest
Studies:
Chest x-ray 01/12/25-NAD.
CT chest 01/13/[address] evidence for acute pulmonary thromboembolism, mild bilateral bronchitis, bilateral tiny centrilobular nodules suggesting mild infection or inflammatory bronchiolitis.
Echocardiogram 01/13/25-EF 66%, right ventricular size and systolic function normal, mild to moderate aortic regurgitation
Data Reviewed
-
EKG: Report reviewed by me
Radiology: Image personally visualized and interpreted and Report reviewed by me
CT Scan: Image personally visualized and interpreted and Report reviewed by me
Medical Tests (Nuc Med, Echo etc): Report reviewed by me
Labs: Labs reviewed by me
Old Records: Reviewed
Total Time Spent with Patient (in minutes): 65
[2025-01-13] MEDS: LASIX 40 MG IV (15:10)
[2025-01-13] MEDS: PULMICORT 0.5 MG INH (17:13)
[2025-01-13] MEDS: ATROVENT NEBULES 0.5 MG INH (17:13)
[2025-01-13] MEDS: LOVENOX 40 MG SC (17:18)
[2025-01-13] MEDS: LIPITOR 40 MG PO (17:18)
[2025-01-13] MEDS: NON-FORMULARY ITEM 1 UNIT TOPICAL ×2 (20:03→20:04)
[2025-01-13] MEDS: BENADRYL 25 MG PO (20:59)
[2025-01-13] MEDS: DESYREL 150 MG PO (22:02)
[2025-01-14] VITALS (7 sets, daily range): BP systolic 100–166; BP diastolic 43–77; PULSE 61–75; BMI 22.4
[2025-01-14] MEDS: PULMICORT 0.5 MG INH ×2 (07:46→20:31)
[2025-01-14] MEDS: ATROVENT NEBULES INH ×3 (07:51→20:31)
[2025-01-14 08:58] LABS: Hematocrit 36.7 % (37.0-47.0); Hemoglobin 12.4 g/dL (12.0-16.0); Mean Corp Hgb Conc. 33.8 g/dL (33.0-37.0); Mean Corpuscular Volume 87.6 fL (81.0-99.0); Platelet Count 184 10^3/uL (130-400); Red Cell Dist. Width 14.3 % (11.5-14.5)
[2025-01-14] MEDS: NON-FORMULARY ITEM 1 UNIT TOPICAL ×4 (09:11→20:02)
[2025-01-14] MEDS: LOW STRENGTH ASPIRIN 81 MG PO (09:12)
[2025-01-14] MEDS: PROZAC 60 MG PO (09:12)
[2025-01-14] MEDS: VIBRAMYCIN 100 MG PO ×2 (09:12→20:02)
--- NOTE | 2025-01-14 09:15 | W.PN.CARDCBS ---
Today's Communication / Plan
-
Troponin is negative x 2 and proBNP 548. She did respond to gentle diuresis, will give one more dose lasix 20 mg IV. She will not likely need lasix as outpt.
Echo Jan 13 2025 showed EF 66% with normal LV and RV function. There is mild to moderate aortic regurgitation and mild mitral regurgitation, but pulmonary artery pressures were normal.
Her symptoms appear more pulmonary than cardiac related. CT scan did not suggest significant volume overload.
Her EKGs were overall unremarkable 2 negative troponins. Could consider outpatient Lexiscan nuclear stress testing.
Will arrange outpt cardiac follow up.
Impression / Plan
-
.
PCP: Dr. Haider
Cardiology: Previously seen at [facility], no recent follow up
Impression:
Presented with SOB, orthopnea, weight gain
Multifactorial dyspnea
Bronchitis
Asthma suspected with acute exacerbation
Mild HFpEF
Takotsubo cardiomyopathy
Renal cell cancer status post L nephrectomy
Anxiety
h/o spontaneous pneumothorax x 2
Sjogren's syndrome
Echo 01/13/2025: EF 66%, no RWMA, mild to moderate AR, mild MR, trace TR, estimated PAP [address] chest Jan 13 2025: No CTA evidence for an acute pulmonary thromboembolism.
Mild bilateral bronchitis. Bilateral tiny centrilobular nodules suggesting and mild infectious or inflammatory bronchiolitis.
Plan:
Hx: 69-year-old female with past medical history of Takotsubo cardiomyopathy, renal cell carcinoma, anxiety, and Sjogren syndrome presents with progressive shortness of breath and chest heaviness. She has had 2 weeks of symptoms of they have slowly
worsened. She was of urgent care and then was referred to the emergency room. Her weight is going up about 7 pounds. Previously had Takotsubo's cardiomyopathy in 2013 but is off all cardiac medications.
Troponin is negative x 2 and proBNP 548. She did respond to gentle diuresis, will give one more dose lasix 20 mg IV. She will not likely need lasix as outpt.
Echo Jan 13 2025 showed EF 66% with normal LV and RV function. There is mild to moderate aortic regurgitation and mild mitral regurgitation, but pulmonary artery pressures were normal.
Her symptoms appear more pulmonary than cardiac related. CT scan did not suggest significant volume overload.
Her EKGs were overall unremarkable 2 negative troponins. Could consider outpatient Lexiscan nuclear stress testing.
Will arrange outpt cardiac follow up.
Discussed with nursing.
HPI: Shante is a 69-year-old female with past medical history of Takotsubo cardiomyopathy, renal cell carcinoma status post left nephrectomy, anxiety, and Sjogren syndrome. She presented to [facility] ER for evaluation after being seen at the urgent
care for progressively worsening shortness of breath and chest heaviness. Symptoms have been ongoing for the past 2 weeks, but acutely worsened over the past few days. She reports at urgent care, she was told she likely had pneumonia, so was
referred to the emergency room for further evaluation. She notes her shortness of breath and chest tightness happens typically with exerting herself, walking up a flight of steps, or when lying flat. These are unusual for her as she is highly
active at baseline. She also notes her weight has gone up approximately 7 pounds. Weight typically is around 137 pounds, and weight today in ER was 145 pounds. She does not follow regularly with cardiology. Was followed by cardiology at
[facility] following episode of what she reports was cardiac arrest in the setting of Takotsubo cardiomyopathy in 2012, however states has been stable for many years and is no longer followed by cardiology, managed primarily by her PCP. She is not
on any cardiac medications. In ER, chest x-ray without acute cardiopulmonary process, CT of chest without evidence of PE, however did appear consistent with possible bronchitis. Flu, RSV, and COVID testing negative. Lab work revealed negative
troponin x 2 with proBNP 548. EKG reviewed, sinus rhythm with no acute ischemic changes noted. Cardiology consulted for evaluation given concern for possible cardiac component of symptoms. At this time, sitting up in bed she feels well, but still
does have some orthopnea when lying flat
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
Subjective
Date of Service: January 14, 2025
Pt seen and examined. No complaints. No chest pain or shortness of breath.
Objective
Labs:
01/14/25 08:42
Labs
Hgb 12.4 g/dL (12.0-16.0) 01/14/25 08:42
Hct 36.7 % (37.0-47.0) L 01/14/25 08:42
Plt Count 184 10^3/uL (130-400) 01/14/25 08:42
Sodium 136 mmol/L (135-145) 01/12/25 19:11
Potassium mmol/L (3.5-5.1) 01/12/25 19:11
BUN 32 mg/dl (7-17) H 01/12/25 19:11
Creatinine 0.7 mg/dL (0.6-1.0) 01/12/25 19:11
Glucose 86 mg/dl (70-99) 01/12/25 19:11
Troponins
01/12/25 01/12/25
19:08 23:23
Troponin I < 0.012 < 0.012
Vital Signs and I&O:
Vital Signs
Temp Pulse Resp BP Pulse Ox
97.9 F 72 16 134/46 95
01/14/25 07:00 01/14/25 07:53 01/14/25 07:53 01/14/25 07:00 01/14/25 07:00
Vital Signs
Temp Pulse Resp BP Pulse Ox
97.9 F 72 16 134/46 95
01/14/25 07:00 01/14/25 07:53 01/14/25 07:53 01/14/25 07:00 01/14/25 07:00
Intake & Output
01/12/25 01/13/25 01/14/25 01/15/25
06:59 06:59 06:59 06:59
Intake Total 1140 / 1140
Balance 1139
Physical Exam
Physical Exam
General: No acute distress, AAOX3
Neck: Negative JVD
Heart: Regular, Negative S3 positive S1/S2, Negative S4, No murmur
Lungs: CTA b/l, negative wheezes/rales/rhonchi
Abd: Positive BS, NT/ND, neg rebound/rigidity/guarding
Ext: Negative cyanosis/clubbing/edema
Neuro: nonfocal
[2025-01-14 09:25] LABS: Troponin I < 0.012 ng/ml
[2025-01-14 09:33] LABS: Blood Urea Nitrogen 32 mg/dl (7-17); Calcium 9.5 mg/dl (8.4-10.2); Carbon Dioxide 26 mmol/L (22-30); Chloride 104 mmol/L (98-107); Estimated Creatinine Clearance 57 ml/min; Glucose 87 mg/dl (70-99); HDL Cholesterol 61 mg/dl; LDL Cholesterol, Calculated 121 mg/dl; Potassium 4.2 mmol/L (3.5-5.1); Sodium 139 mmol/L (135-145); Very Low Density Lipoprotein 22 mg/dl (0-30); eGFR > 60.00
--- NOTE | 2025-01-14 11:03 | W.PN.HOSP.TC ---
Addendum entered and electronically signed by Eros Mohamud MD 01/14/25 14:07:
L foot workup ongoing by established out of hospital adult ministries director and PCP, as per patient she was scheduled for Bone scan. No visible wound, redness, swelling seen on L foot, so reasonable to continue w/u following existent outpatient plan. No
immediate indication for additional imaging
Original Note:
Today's Communication/Plan
-
start prednisone
Sputum Cx if possible
pending V/Q scan
Assessment / Plan
Assessment / Plan
69yo F with PMHX of R spontaneous pneumothorax, lung nodules, anxiety, Takotsubo CM came with 3 weeks of worsening dyspnea, pronounced on walking up the stairs and when laying flat.
A/P:
#Dyspnea with acute hypoxic insufficiency on admission
#Orthopnea
#Dizziness on ambulation with neg orthostatic VS
Lung nodules followed by PCP for 5 years now without patient reported changes
No wheezing on exam
Wean off O2
pro-BNP 548, Echo: Ef 66%, normal RV size and function, mild-moderate AR, no regional wall motion anormalitied
telemetry without clinically significant arrhythmia
Troponin undetectable, might benefit from outpatient perfusion stress test
very unclear picture of pulmonary VS cardiac symptoms with CT finding s and PMHx of cardiac problems.
Cardiology consult:might benefit from outpatient perfusion stress test
#right upper lobe s/p wedge resection
#Hx of R pneumothorax
#Hx of lung nodules
#COPD exacerbation
#Reactive mediastinal lymphadenopathy rective 2/2 Mild bilateral bronchitis
No CTA evidence for an acute pulmonary thromboembolism, however since very concerning symptoms - V/! scan pending
Pulm consult
Started steroids PO on 01/14/25
Did not tolerate Albuterol or ipratropium
cont Budesonide
Doxycycline started
Hx of Mediastinoscopy. Breast biopsy. with unremarkable results as per patient
sputum Cx if possible
#Left nephrectomy 2/2 RCC
#Sjogren disease
#Anxiety d/o
#Hx of CVA
cont home meds
DVt ppx Lovenox
Full code
I have spent at least 51 min reviewing chart, test results, communication with consultants and providing direct patient care
Anticipated Discharge: > 48 hours
Subjective/Interval History
-
Date of Service: January 14, 2025
Objective Data
-
Labs:
Laboratory Results
01/14/25
08:42
WBC 5.0
Hgb 12.4
Hct 36.7 L
Plt Count 184
Sodium 139
Potassium 4.2
Chloride 104
Carbon Dioxide 26
BUN 32 H
Creatinine 0.9
Glucose 87
Calcium 9.5
Vital Signs:
Vital Signs
Temp Pulse Resp BP Pulse Ox
97.9 F 72 16 134/46 95
01/14/25 07:00 01/14/25 07:53 01/14/25 07:53 01/14/25 07:00 01/14/25 07:00
I&O
01/13/25 01/14/25 01/15/25
06:59 06:59 06:59
Intake Total 1140 / 1140
Balance 1140 / 1140
Review of Systems
-
History Source: Patient
All other systems: Reviewed and negative
Physical Exam
-
General: No Apparent Distress
HEENT: Normocephalic
Respiratory: Wheezes
GI: Soft, Nontender and Nondistended
Neuro: Awake, Alert, Oriented and AO x 3
Psych: Calm
[2025-01-14] MEDS: DELTASONE 40 MG PO (11:07)
[2025-01-14] MEDS: LASIX 20 MG IV (11:07)
[2025-01-14] MEDS: XANAX 0.25 MG PO ×2 (12:02→20:06)
--- NOTE | 2025-01-14 13:54 | W.PN.UPDATE ---
Update Note
Progress Note Update
Psychiatric Evaluation dictated.
Patient admits she was anxious regarding her medical issues particularly the possible osteomyelitis and dyspnea. Now she feels better after taking 0.25 mg of Xanax. Denies helplessness, hopelessness or suicidal thoughts.
She has very long psychiatric history and has seem many therapists in the past, has hed diagnoses of PTSD, Anorexia, Bulimia, Depression at various times. Presently not seeing a therapist and gets her psych meds from .
I would continue current meds as presently she is doing better.
Will F/U.
--- NOTE | 2025-01-14 15:25 | W.PN.PUL3 ---
Today's Communication / Plan
-
Continue with budesonide, Atrovent
Suspect small airways disease, obstructive airways disease
Mosaic pattern on CT imaging and obstructive process on spirometry
Await VQ scan although low suspicion
Continue DVT prophylaxis
Assessment
-
69-year-old former smoking female with a history of renal cell carcinoma, left foot osteomyelitis, cardiomyopathy who presented with shortness of breath and chest tightness and it is unclear whether there was cardiac or pulmonary etiologies to her
shortness of breath-pulmonary was consulted to assess if there are pulmonary causes of her shortness of breath 01/13/25.
Chest tightness and shortness of breath
Bronchitis
Asthma suspected with acute exacerbation
Severe obstructive lung disease, positive bronchodilator response
Mild patchy mosaic pattern per my review, upon reviewing CT imaging
Conditions present prior to admission:
Cardiomyopathy.
Renal cell carcinoma.
Anxiety/depression.
Spontaneous pneumothorax �2.
Former smoker.
Sjogren syndrome.
Left foot osteomyelitis.
Left nephrectomy. Right thoracotomy. Cervical fusion. Left oophorectomy. Left foot surgery. Cholecystectomy. Appendectomy. Hernia repair. Mediastinoscopy Breast biopsy
Plan/recommendation
At this time, patient appears to be comfortable but has chronic symptoms of shortness of breath, chest tightness
Chest exam with mild end expiratory wheeze and bibasilar crackles
I did review her imaging. I do feel there is a mild mosaic pattern
This is typically seen in airways disease and can rarely be seen in thromboembolic disease. Low suspicion for thromboembolic disease at this time
CT chest without evidence of pulm embolism
Spirometry confirms severe obstructive lung disease with bronchodilator response
Moving forward
Continue with budesonide twice a day, Atrovent 3 times a day
Patient thinks she may have had a reaction to the nebulizer yesterday but tolerated this a.m. budesonide and Atrovent. This will continue
Await VQ scan, however low suspicion for thromboembolic disease
It is interesting that she has Sjogren syndrome
Whether this may be playing a role with her underlying pulmonary process remains to be determined
Check cultures.
Sputum culture if able.
Continue antibiotics-on doxycycline-condition finite course.
Cardiology correspondence reviewed. Doubt cardiac etiology but patient was given Lasix. She thinks it may have helped a little bit
DVT prophylaxis-on Lovenox.
Nutrition
Early mobilization.
Outpatient pulmonary follow-up, including full PFTs and follow-up CT chest
Will follow
Studies:
Chest x-ray 01/12/25-NAD.
CT chest 01/13/[address] evidence for acute pulmonary thromboembolism, mild bilateral bronchitis, bilateral tiny centrilobular nodules suggesting mild infection or inflammatory bronchiolitis.
Echocardiogram 01/13/25-EF 66%, right ventricular size and systolic function normal, mild to moderate aortic regurgitation
Subjective Data
-
Date of Service:
Date of Service: January 14, 2025
Subjective:
Patient evaluated earlier this morning. Appears to be in good spirits. Still with shortness of breath slightly improved. Still with chest discomfort, slightly improved. Has mild cough but no hemoptysis
Objective Data
Data Reviewed
Vital Signs / I&O / Oxygen:
Vital Signs
Temp Pulse Resp BP Pulse Ox
97.8 F 77 16 134/58 95
01/14/25 14:52 01/14/25 14:52 01/14/25 14:52 01/14/25 14:52 01/14/25 14:52
Intake and Output
01/13/25 01/14/25 01/15/25
06:59 06:59 06:59
Intake Total 1140 / 1140
Balance 1140 / 1140
SaO2 95
Nasal Cannula flow liters per 2
minute
Physical Exam
General: Comfortable
HEENT: Normocephalic and Anicteric
Cardiovascular: S1-S2, Regular Rhythm, Murmur (n) and Rub (n)
Respiratory: Wheeze (Mild expiratory, upper lung field predominant posteriorly), Crackles (Bibasilar), Rhonchi (n), Non-Labored Respirations and Stridor (n)
GI: Soft, Non Distended and Non Tender
Neurology: Awake, Alert and No Motor Deficits
Skin: Cyanosis (n), Jaundice (n) and Rash (n)
Labs/Micro/Reports
Lab Data
01/14/25 08:42
01/14/25 08:42
Microbiology
01/12/25 23:01 Nasal Swab Respiratory Syncytial Virus Ag - Final
Negative for Respiratory Syncytial Virus.
A false negative result may be obtained with a specimen
collected early in the acute phase. If symptoms persist, a
new specimen should be tested.
01/12/25 23:01 Nasal Swab Influenza Types A & B (KRIS) - Final
Negative for Influenza A & B, NAAT
Negative results must be combined with clinical observations
and patient history.
Nucleic Acid Amplification test (NAAT)performed on the
[employer] platform.
[2025-01-14] MEDS: LOVENOX 40 MG SC (17:03)
[2025-01-14] MEDS: LIPITOR 40 MG PO (17:04)
[2025-01-14] MEDS: TYLENOL 650 MG PO (20:35)
[2025-01-14] MEDS: DESYREL 150 MG PO (22:07)
[2025-01-15 03:20] VITALS: BP 137/54
[2025-01-15] MEDS: PULMICORT 0.5 MG INH ×2 (07:43→20:09)
[2025-01-15] MEDS: ATROVENT NEBULES INH ×3 (07:43→20:08)
[2025-01-15 07:45] VITALS: BP 144/68
[2025-01-15] MEDS: NON-FORMULARY ITEM 1 UNIT TOPICAL ×4 (09:07→19:50)
[2025-01-15] MEDS: LOW STRENGTH ASPIRIN 81 MG PO (09:07)
[2025-01-15] MEDS: DELTASONE 40 MG PO (09:08)
[2025-01-15] MEDS: XANAX 0.25 MG PO ×2 (09:08→17:39)
[2025-01-15] MEDS: PROZAC 60 MG PO (09:08)
[2025-01-15] MEDS: VIBRAMYCIN 100 MG PO ×2 (09:08→19:50)
--- NOTE | 2025-01-15 10:05 | W.PN.UPDATE ---
Update Note
Progress Note Update
Patient was distressed initially about being told she has COPD and stiff lungs and feels overwhelmed worrying about her future particularly what activities she can still do. Also she is worried about having to decide whether to have her toe
amputated due to osteomyelitis.
She does respond to supportive therapy and on intellectual level understands she needs to develop better coping shills. As we discussed yesterday she will look for CBT therapist, I also suggested looking at some apps and trying out different
relaxation techniques. She does get some relief from the 0.25 mg of Xanax prn which she uses judiciously and seems to be aware of potential pitfalls of BZD's.
--- NOTE | 2025-01-15 11:26 | W.PN.HOSP.TC ---
Addendum entered and electronically signed by Eros Mohamud MD 01/15/25 14:19:
#Possible acute HFpEF
mildly elevated BNP
Cardio started diuresis
follow daily weight, Cr and electrolytes
Original Note:
Today's Communication/Plan
-
cont bronchodilators and steroids
pednign V/Q
Assessment / Plan
Assessment / Plan
69yo F with PMHX of R spontaneous pneumothorax, lung nodules, anxiety, Takotsubo CM came with 3 weeks of worsening dyspnea, pronounced on walking up the stairs and when laying flat. Managed for COPD exacerbation
A/P:
#right upper lobe s/p wedge resection
#Hx of R pneumothorax
#Hx of lung nodules
#COPD exacerbation
#Reactive mediastinal lymphadenopathy rective 2/2 Mild bilateral bronchitis
#COPD exacerbations
Bronchodilators
Lung nodules followed by PCP for 5 years now without patient reported changes
Severe reversible obstruction on PFT as per pulm
Prednisone taper
Wean off O2
No CTA evidence for an acute pulmonary thromboembolism, however since very concerning symptoms - V/! scan pending
Did not tolerate Albuterol or ipratropium
cont Budesonide
Doxycycline started
Hx of Mediastinoscopy. Breast biopsy. with unremarkable results as per patient
sputum Cx if possible
V/Q scan pending as per pulm
#Dyspnea with acute hypoxic insufficiency on admission
#Orthopnea
#Dizziness on ambulation with neg orthostatic VS
pro-BNP 548, Echo: Ef 66%, normal RV size and function, mild-moderate AR, no regional wall motion anormalitied
telemetry without clinically significant arrhythmia
Troponin undetectable
Cardiology consult:might benefit from outpatient perfusion stress test
#PTSD,
#Anorexia
#Bulimia
#Depression
#Anxiety
Psych consult: responding well to Xanax, cont
#Left nephrectomy 2/2 RCC
#Sjogren disease
#Anxiety d/o
#Hx of CVA
cont home meds
DVt ppx Lovenox
Full code
I have spent at least 52 min reviewing chart, test results, communication with consultants and providing direct patient care
Anticipated Discharge: Within 24 hours
Subjective/Interval History
-
Date of Service: January 15, 2025
Objective Data
-
Vital Signs:
Vital Signs
Temp Pulse Resp BP Pulse Ox
98.4 F 72 16 144/68 98
01/15/25 07:45 01/15/25 07:45 01/15/25 07:45 01/15/25 07:45 01/15/25 07:45
I&O
01/14/25 01/15/25 01/16/25
06:59 06:59 06:59
Intake Total 1140 / 1140 1540 / 1540
Balance 1140 / 1140 1540 / 1540
Review of Systems
-
History Source: Patient
All other systems: Reviewed and negative
Respiratory: Reports Trouble Breathing (on exertion )
Physical Exam
-
General: No Apparent Distress
HEENT: Normocephalic
Respiratory: Wheezes
GI: Soft, Nontender and Nondistended
Skin: Warm
Neuro: Awake, Alert, Oriented and AO x 3
Psych: Calm
[2025-01-15 12:03] VITALS: BP 157/83
[2025-01-15] MEDS: BENADRYL 25 MG PO (13:14)
--- NOTE | 2025-01-15 14:09 | W.PN.CARDCBS ---
Today's Communication / Plan
-
Continue Lasix 20 mg IV daily. Creatinine remains normal.
Her symptoms are more related to pulmonary disease though. For VQ scan in AM.
Blood pressure is elevated. Would add valsartan 80 mg daily.
Impression / Plan
-
.
PCP: Dr. Haider
Cardiology: Previously seen at [facility], no recent follow up
Impression:
Presented with SOB, orthopnea, weight gain
Multifactorial dyspnea
Bronchitis
Asthma suspected with acute exacerbation
Mild HFpEF
Takotsubo cardiomyopathy
Renal cell cancer status post L nephrectomy
Anxiety
h/o spontaneous pneumothorax x 2
Sjogren's syndrome
Echo 01/13/2025: EF 66%, no RWMA, mild to moderate AR, mild MR, trace TR, estimated PAP [address] chest Jan 13 2025: No CTA evidence for an acute pulmonary thromboembolism.
Mild bilateral bronchitis. Bilateral tiny centrilobular nodules suggesting and mild infectious or inflammatory bronchiolitis.
Plan:
Hx: 69-year-old female with past medical history of Takotsubo cardiomyopathy, renal cell carcinoma, anxiety, and Sjogren syndrome presents with progressive shortness of breath and chest heaviness. She has had 2 weeks of symptoms of they have slowly
worsened. She was of urgent care and then was referred to the emergency room. Her weight is going up about 7 pounds. Previously had Takotsubo's cardiomyopathy in 2012 but is off all cardiac medications.
Troponin is negative x 2 and proBNP 548.
Blood pressure is elevated would add low-dose valsartan 80 mg daily.
Continue Lasix 20 mg IV daily for now. However this is likely more of a pulmonary process. Creatinine normal.
Echo Jan 13 2025 showed EF 66% with normal LV and RV function. There is mild to moderate aortic regurgitation and mild mitral regurgitation, but pulmonary artery pressures were normal.
Her symptoms appear more pulmonary than cardiac related. CT scan did not suggest significant volume overload.
Her EKGs were overall unremarkable 2 negative troponins. Could consider outpatient Lexiscan nuclear stress testing.
Will arrange outpt cardiac follow up.
HPI: Shante is a 69-year-old female with past medical history of Takotsubo cardiomyopathy, renal cell carcinoma status post left nephrectomy, anxiety, and Sjogren syndrome. She presented to [facility] ER for evaluation after being seen at the urgent
care for progressively worsening shortness of breath and chest heaviness. Symptoms have been ongoing for the past 2 weeks, but acutely worsened over the past few days. She reports at urgent care, she was told she likely had pneumonia, so was
referred to the emergency room for further evaluation. She notes her shortness of breath and chest tightness happens typically with exerting herself, walking up a flight of steps, or when lying flat. These are unusual for her as she is highly
active at baseline. She also notes her weight has gone up approximately 7 pounds. Weight typically is around 137 pounds, and weight today in ER was 145 pounds. She does not follow regularly with cardiology. Was followed by cardiology at
[facility] following episode of what she reports was cardiac arrest in the setting of Takotsubo cardiomyopathy in 2013, however states has been stable for many years and is no longer followed by cardiology, managed primarily by her PCP. She is not
on any cardiac medications. In ER, chest x-ray without acute cardiopulmonary process, CT of chest without evidence of PE, however did appear consistent with possible bronchitis. Flu, RSV, and COVID testing negative. Lab work revealed negative
troponin x 2 with proBNP 548. EKG reviewed, sinus rhythm with no acute ischemic changes noted. Cardiology consulted for evaluation given concern for possible cardiac component of symptoms. At this time, sitting up in bed she feels well, but still
does have some orthopnea when lying flat
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
Subjective
Date of Service: January 15, 2025
Still remains dyspneic but slightly improved. She did diurese some. Denies chest pains.
Objective
Labs:
01/14/25 08:42
01/14/25 08:42
Labs
Hgb 12.4 g/dL (12.0-16.0) 01/14/25 08:42
Hct 36.7 % (37.0-47.0) L 01/14/25 08:42
Plt Count 184 10^3/uL (130-400) 01/14/25 08:42
Sodium 139 mmol/L (135-145) 01/14/25 08:42
Potassium 4.2 mmol/L (3.5-5.1) 01/14/25 08:42
BUN 32 mg/dl (7-17) H 01/14/25 08:42
Creatinine 0.9 mg/dL (0.6-1.0) 01/14/25 08:42
Glucose 87 mg/dl (70-99) 01/14/25 08:42
Troponins
01/12/25 01/12/25 01/14/25
19:08 23:23 08:42
Troponin I < 0.012 < 0.012 < 0.012
Vital Signs and I&O:
Vital Signs
Temp Pulse Resp BP Pulse Ox
98.0 F 66 16 157/83 94
01/15/25 12:03 01/15/25 12:03 01/15/25 12:03 01/15/25 12:03 01/15/25 12:03
Vital Signs
Temp Pulse Resp BP Pulse Ox
98.0 F 66 16 157/83 94
01/15/25 12:03 01/15/25 12:03 01/15/25 12:03 01/15/25 12:03 01/15/25 12:03
Intake & Output
01/13/25 01/14/25 01/15/25 01/16/25
06:59 06:59 06:59 06:59
Intake Total 1140 / 1140 1540 / 1540
Balance 1140 / 1140 1540 / 1540
Physical Exam
Physical Exam
GEN: No distress, awake, Ox3
HEENT: supple, anicteric, mmm
LUNGS: Scattered rhonchi
CV: Reg, S1/S2, 1/6 syst LSB, no gallop
ABD: soft, BS+, NT/ND
EXT: No edema
NEURO: Gross non-focal
SKIN: No rash
--- NOTE | 2025-01-15 15:48 | W.PN.PUL3 ---
Today's Communication / Plan
-
Continue nebulized budesonide and Atrovent
Await VQ scan 01/16
Recommend rapid taper off of steroids
She will require outpatient follow-up in pulmonary clinic
Assessment
-
69-year-old former smoking female with a history of renal cell carcinoma, left foot osteomyelitis, cardiomyopathy who presented with shortness of breath and chest tightness and it is unclear whether there was cardiac or pulmonary etiologies to her
shortness of breath-pulmonary was consulted to assess if there are pulmonary causes of her shortness of breath 01/13/25.
Chest tightness and shortness of breath
Bronchitis
Asthma suspected with acute exacerbation
Severe obstructive lung disease, positive bronchodilator response
Mild patchy mosaic pattern per my review, upon reviewing CT imaging
Conditions present prior to admission:
Cardiomyopathy.
Renal cell carcinoma.
Anxiety/depression.
Spontaneous pneumothorax �2.
Former smoker.
Sjogren syndrome.
Left foot osteomyelitis.
Left nephrectomy. Right thoracotomy. Cervical fusion. Left oophorectomy. Left foot surgery. Cholecystectomy. Appendectomy. Hernia repair. Mediastinoscopy Breast biopsy
Plan/recommendation
At this time, patient appears to be comfortable but has chronic symptoms of shortness of breath, chest tightness
Chest exam with mild end expiratory wheeze and bibasilar crackles
I did review her imaging. I do feel there is a mild mosaic pattern
This is typically seen in airways disease and can rarely be seen in thromboembolic disease. Low suspicion for thromboembolic disease at this time
CT chest without evidence of pulm embolism
Spirometry confirms severe obstructive lung disease with bronchodilator response, and mild restrictive process
Moving forward
Continue with budesonide twice a day, Atrovent 3 times a day
I will plan to continue this as an outpatient
Patient thinks she may have had a reaction to the nebulizer yesterday but tolerated this a.m. budesonide and Atrovent. This will continue
Await VQ scan, however low suspicion for thromboembolic disease, plan for 01/16
Steroids were started by primary service
I do not feel strongly about this and would prefer that this is tapered off rapidly
It is interesting that she has Sjogren syndrome
Whether this may be playing a role with her underlying pulmonary process remains to be determined
Check cultures.
Sputum culture if able.
Continue antibiotics-on doxycycline-7 days
Cardiology correspondence reviewed. Doubt cardiac etiology but patient was given Lasix. She thinks it may have helped a little bit
DVT prophylaxis-on Lovenox.
Nutrition
Early mobilization.
Outpatient pulmonary follow-up, including full PFTs and follow-up CT chest
Will follow
Studies:
Chest x-ray 01/12/25-NAD.
CT chest 01/13/[address] evidence for acute pulmonary thromboembolism, mild bilateral bronchitis, bilateral tiny centrilobular nodules suggesting mild infection or inflammatory bronchiolitis.
Echocardiogram 01/13/25-EF 66%, right ventricular size and systolic function normal, mild to moderate aortic regurgitation
Subjective Data
-
Date of Service:
Date of Service: January 15, 2025
Subjective:
Observed patient ambulating yesterday in the hallway without difficulty. Examined earlier this morning. Slightly improved with shortness of breath and chest tightness. Describes anxiety regarding diagnoses. Denies nausea, abdominal pain, cough,
hemoptysis
Objective Data
Data Reviewed
Vital Signs / I&O / Oxygen:
Vital Signs
Temp Pulse Resp BP Pulse Ox
98.0 F 66 16 157/83 94
01/15/25 12:03 01/15/25 12:03 01/15/25 12:03 01/15/25 12:03 01/15/25 12:03
Intake and Output
01/14/25 01/15/25 01/16/25
06:59 06:59 06:59
Intake Total 1140 / 1140 1540 / 1540
Balance 1140 / 1140 1540 / 1540
SaO2 94
Nasal Cannula flow liters per 2
minute
Physical Exam
General: Comfortable
HEENT: Normocephalic and Anicteric
Cardiovascular: S1-S2, Regular Rhythm, Murmur (n) and Rub (n)
Respiratory: Wheeze (Mild expiratory, upper lung field predominant posteriorly), Crackles (Mild at base), Rhonchi (n), Non-Labored Respirations and Stridor (n)
GI: Soft, Non Distended and Non Tender
Neurology: Awake, Alert and No Motor Deficits
Skin: Cyanosis (n), Jaundice (n) and Rash (n)
Labs/Micro/Reports
Lab Data
01/14/25 08:42
01/14/25 08:42
Microbiology
01/12/25 23:01 Nasal Swab Respiratory Syncytial Virus Ag - Final
Negative for Respiratory Syncytial Virus.
A false negative result may be obtained with a specimen
collected early in the acute phase. If symptoms persist, a
new specimen should be tested.
01/12/25 23:01 Nasal Swab Influenza Types A & B (KRIS) - Final
Negative for Influenza A & B, NAAT
Negative results must be combined with clinical observations
and patient history.
Nucleic Acid Amplification test (NAAT)performed on the
[employer] platform.
[2025-01-15 16:09] VITALS: BP 132/58
[2025-01-15] MEDS: DIOVAN 80 MG PO (16:19)
[2025-01-15] MEDS: LASIX 20 MG IV (16:20)
[2025-01-15] MEDS: LIPITOR 40 MG PO (17:19)
[2025-01-15] MEDS: LOVENOX 40 MG SC (17:19)
[2025-01-15 19:41] VITALS: BP 129/60
[2025-01-15] MEDS: DESYREL 150 MG PO (21:26)
[2025-01-15 23:18] VITALS: BP 132/61
[2025-01-16 02:54] VITALS: BP 122/59
[2025-01-16 06:00] VITALS: BMI 22.3
[2025-01-16 06:53] LABS: Blood Urea Nitrogen 35 mg/dl (7-17); Calcium 9.5 mg/dl (8.4-10.2); Carbon Dioxide 30 mmol/L (22-30); Chloride 103 mmol/L (98-107); Estimated Creatinine Clearance 64 ml/min; Glucose 86 mg/dl (70-99); Magnesium 2.1 mg/dl (1.6-2.3); Potassium 3.5 mmol/L (3.5-5.1); Sodium 139 mmol/L (135-145); eGFR > 60.00
[2025-01-16 07:19] VITALS: BP 143/71
[2025-01-16] MEDS: PULMICORT 0.5 MG INH (07:32)
[2025-01-16] MEDS: ATROVENT NEBULES INH (07:33)
[2025-01-16] MEDS: XANAX 0.25 MG PO ×2 (08:00→16:07)
[2025-01-16] MEDS: PROZAC 60 MG PO (08:07)
[2025-01-16] MEDS: TYLENOL 650 MG PO ×2 (08:10→15:16)
[2025-01-16] MEDS: DIOVAN PO ×2 (08:12→08:23)
[2025-01-16] MEDS: DELTASONE 40 MG PO (08:12)
[2025-01-16] MEDS: VIBRAMYCIN 100 MG PO ×2 (08:12→19:51)
[2025-01-16] MEDS: LOW STRENGTH ASPIRIN 81 MG PO (08:13)
[2025-01-16] MEDS: NON-FORMULARY ITEM 1 UNIT TOPICAL ×4 (08:14→19:52)
[2025-01-16] MEDS: LASIX 20 MG IV (08:15)
--- NOTE | 2025-01-16 10:04 | W.PN.PUL3 ---
Today's Communication / Plan
-
Reviewed spirometry results, will change therapy to max inhalers to continue as OP
Can try IV decadron for now (equivalent to 50mg prednisone dosing)--can be transitioned back to PO course if she improves
VQ scan today, prior CTA negative
Consider ENT eval if upper airway tightness and chest pain are not resolved
OP FU to be arranged at discharge
Reviewed case with care team
Assessment
-
69-year-old former smoking female with a history of renal cell carcinoma, left foot osteomyelitis, cardiomyopathy who presented with shortness of breath and chest tightness and it is unclear whether there was cardiac or pulmonary etiologies to her
shortness of breath-pulmonary was consulted to assess if there are pulmonary causes of her shortness of breath 01/13/25.
Chest tightness and shortness of breath, anxiety a component
R/o VCD
Suspect AE COPD
Severe obstructive lung disease, positive bronchodilator response
Mild patchy mosaic pattern per my review, upon reviewing CT imaging
Conditions present prior to admission:
Cardiomyopathy.
Renal cell carcinoma.
Anxiety/depression.
Spontaneous pneumothorax �2.
Former smoker.
Sjogren syndrome.
Left foot osteomyelitis.
Left nephrectomy. Right thoracotomy. Cervical fusion. Left oophorectomy. Left foot surgery. Cholecystectomy. Appendectomy. Hernia repair. Mediastinoscopy Breast biopsy
Plan/recommendation
At this time, patient appears to be comfortable but has chronic symptoms of shortness of breath, chest tightness
Chest exam with mild end expiratory wheeze and bibasilar crackles--seems upper airway predominant--could be component of VCD
I did review her imaging. I do feel there is a mild mosaic pattern
This is typically seen in airways disease and can rarely be seen in thromboembolic disease. Low suspicion for thromboembolic disease at this time
CT chest without evidence of pulm embolism
Spirometry confirms severe obstructive lung disease with bronchodilator response, and mild restrictive process
We discussed treatment for AECOPD and anxiety
Will place on maximal inhaler therapy to continue as OP
Increase prednisone to IV decadron
Await VQ scan, however low suspicion for thromboembolic disease, plan for 01/16
She notes prior history of pulmonary sarcoid and CTD but did not follow up w/ Pulmonary for many years as OP
It is interesting that she has Sjogren syndrome
Whether this may be playing a role with her underlying pulmonary process remains to be determined
We discussed further OP FU would be needed
Anxiety is likely a component if only thus far Xanax has been helpful
Less likely infection
Placed on antibiotics-on doxycycline-can likely stop
Check PCT
Cardiology correspondence reviewed.
Doubt cardiac etiology but patient was given Lasix. She thinks it may have helped a little bit
DVT prophylaxis-on Lovenox.
Nutrition
Early mobilization.
Outpatient pulmonary follow-up, including full PFTs and follow-up CT chest
Will follow
Studies:
Chest x-ray 01/12/25-NAD.
CT chest 01/13/[address] evidence for acute pulmonary thromboembolism, mild bilateral bronchitis, bilateral tiny centrilobular nodules suggesting mild infection or inflammatory bronchiolitis.
Echocardiogram 01/13/25-EF 66%, right ventricular size and systolic function normal, mild to moderate aortic regurgitation
Total time spent on this consultation/encounter __51__ minutes which includes review of history, physical exam, medications, laboratory data, personal review of imaging, extensive review of outpatient records, discussion with care team and
respiratory therapy.
Subjective Data
-
Date of Service:
Date of Service: January 16, 2025
Chief Complaint: Pulmonary Follow Up
Subjective:
Ongoing chest pain, relieved with xanax only
Remains on RA, reports anxious feelings as well
Objective Data
Data Reviewed
Vital Signs / I&O / Oxygen:
Vital Signs
Temp Pulse Resp BP Pulse Ox
97.5 F 78 16 143/71 96
01/16/25 07:19 01/16/25 07:33 01/16/25 07:33 01/16/25 07:19 01/16/25 07:19
Intake and Output
01/15/25 01/16/25 01/17/25
06:59 06:59 06:59
Intake Total 1540 / 1540 1140 / 1140
Balance 1540 / 1540 1140 / 1140
SaO2 96
Nasal Cannula flow liters per 2
minute
Physical Exam
General: Comfortable
HEENT: Normocephalic and Anicteric
Cardiovascular: S1-S2, Regular Rhythm, Murmur (n) and Rub (n)
Respiratory: Wheeze (Mild expiratory, upper lung field predominant, none posteriorly), Crackles (Mild at base), Rhonchi (n), Non-Labored Respirations and Stridor (n)
GI: Soft, Non Distended and Non Tender
Neurology: Awake, Alert, Oriented and No Motor Deficits
Skin: Cyanosis (n), Jaundice (n) and Rash (n)
Labs/Micro/Reports
Lab Data
01/14/25 08:42
01/16/25 05:02
[2025-01-16] MEDS: DIOVAN 80 MG PO (10:57)
--- NOTE | 2025-01-16 11:13 | W.PN.CARDCBS ---
Addendum entered and electronically signed by Dolores Wang MD 01/16/25 12:00:
I saw and examined the patient.
The Construction Field Engineer's note was reviewed and I agree with the note.
Comment: Patient seen independently by me and examined. Previous history of Takotsubo cardiomyopathy. Admitted with shortness of breath which is primarily pulmonary in nature. She was diuresed during this hospital stay with normal left
ventricular ejection fraction.
Plan at this time:
- Continue pulmonary assessment and evaluation along with treatment.
- Noted to have planned VQ scan
- Switch IV low-dose Lasix to oral
- Continue risk factor modification. She is new to antihypertensive treatment and this will be followed as an outpatient.
- Continue to consider further advanced treatments for mild heart failure with preserved ejection fraction if appropriate as an outpatient.
- Telemetry monitoring labs independently reviewed by me and stable.
Original Note:
Today's Communication / Plan
-
Start Lasix 20 mg PO daily tomorrow
Continue valsartan 80 mg daily
Impression / Plan
-
PCP: Dr. Haider
Cardiology: Previously seen at [facility], no recent follow up
Impression:
Presented with SOB, orthopnea, weight gain
Multifactorial dyspnea
Bronchitis
Asthma suspected with acute exacerbation
Mild HFpEF
Takotsubo cardiomyopathy
Renal cell cancer status post L nephrectomy
Anxiety
h/o spontaneous pneumothorax x 2
Sjogren's syndrome
Echo 01/13/2025: EF 66%, no RWMA, mild to moderate AR, mild MR, trace TR, estimated PAP [address] chest 01/13/25: No CTA evidence for an acute pulmonary thromboembolism. Mild bilateral bronchitis. Bilateral tiny centrilobular nodules suggesting and mild infectious or inflammatory bronchiolitis.
Plan:
-Admitted with SOB and CP. Being managed as acute asthma exacerbation and mild acute HFpEF.
-Pulmonology note reviewed by me and they are performing rapid taper of steroids. VQ scan ordered to look for thromboembolic disease although CT chest without PE
-From cardiac standpoint proBNP was 540 on admission. Patient has had some symptomatic improvement with Lasix 20 mg IV daily diuresis. Patient was not taking a diuretic prior to admission. Will switch to Lasix 20 mg PO daily starting 01/17/2025,
orders placed by me.
-Patient reports 7 lb weight gain prior to admission, ER bed scale weight was 154 lbs and on 01/16/2025 patient weighed 142 lbs
-Labs reviewed by me and Cre stable at 0.8 on 01/16/2025
-Echo reviewed and summarized above by me on 01/16/2025, the EF is preserved with mild to moderate aortic regurgitation.
-The patient was not started on SGLT2 inhibitor or spironolactone this admission. We can evaluate this as an outpatient.
-Patient reports history of Takotsubo cardiomyopathy in 2012, but prior to admission all medications had been stopped and she had not had any recent cardiology follow-up
-Valsartan 80 mg daily started on 01/15/2025 for increased BP
-Will arrange for cardiology follow-up as an outpatient
HPI: Shante is a 69-year-old female with past medical history of Takotsubo cardiomyopathy, renal cell carcinoma status post left nephrectomy, anxiety, and Sjogren syndrome. She presented to [facility] ER for evaluation after being seen at the urgent
care for progressively worsening shortness of breath and chest heaviness. Symptoms have been ongoing for the past 2 weeks, but acutely worsened over the past few days. She reports at urgent care, she was told she likely had pneumonia, so was
referred to the emergency room for further evaluation. She notes her shortness of breath and chest tightness happens typically with exerting herself, walking up a flight of steps, or when lying flat. These are unusual for her as she is highly
active at baseline. She also notes her weight has gone up approximately 7 pounds. Weight typically is around 137 pounds, and weight today in ER was 145 pounds. She does not follow regularly with cardiology. Was followed by cardiology at
[place] following episode of what she reports was cardiac arrest in the setting of Takotsubo cardiomyopathy in 2012, however states has been stable for many years and is no longer followed by cardiology, managed primarily by her PCP. She is not
on any cardiac medications. In ER, chest x-ray without acute cardiopulmonary process, CT of chest without evidence of PE, however did appear consistent with possible bronchitis. Flu, RSV, and COVID testing negative. Lab work revealed negative
troponin x 2 with proBNP 548. EKG reviewed, sinus rhythm with no acute ischemic changes noted. Cardiology consulted for evaluation given concern for possible cardiac component of symptoms. At this time, sitting up in bed she feels well, but still
does have some orthopnea when lying flat
Progress Note - Customer Service Coordinator
Subjective
Date of Service: January 16, 2025
She feels tired and has a headache this morning, improved SOB and edema
Objective
Labs:
01/14/25 08:42
01/16/25 05:02
Labs
Hgb 12.4 g/dL (12.0-16.0) 01/14/25 08:42
Hct 36.7 % (37.0-47.0) L 01/14/25 08:42
Plt Count 184 10^3/uL (130-400) 01/14/25 08:42
Sodium 139 mmol/L (135-145) 01/16/25 05:02
Potassium 3.5 mmol/L (3.5-5.1) 01/16/25 05:02
BUN 35 mg/dl (7-17) H 01/16/25 05:02
Creatinine 0.8 mg/dL (0.6-1.0) 01/16/25 05:02
Glucose 86 mg/dl (70-99) 01/16/25 05:02
Troponins
01/14/25
08:42
Troponin I < 0.012
Vital Signs and I&O:
Vital Signs
Temp Pulse Resp BP Pulse Ox
97.5 F 78 16 143/71 96
01/16/25 07:19 01/16/25 07:33 01/16/25 07:33 01/16/25 07:19 01/16/25 07:19
Vital Signs
Temp Pulse Resp BP Pulse Ox
97.5 F 78 16 143/71 96
01/16/25 07:19 01/16/25 07:33 01/16/25 07:33 01/16/25 07:19 01/16/25 07:19
Intake & Output
01/14/25 01/15/25 01/16/25 01/17/25
06:59 06:59 06:59 06:59
Intake Total 1140 / 1140 1540 / 1540 1140 / 1140
Balance 1140 / 1140 1540 / 1540 1140 / 1140
Physical Exam
Physical Exam
GEN: NAD. AAOx3
HEENT: supple, anicteric, mmm
LUNGS: RA. Upper airway wheeze with forced expiration.
CV: SR on tele. Reg, S1/S2, no murmur
EXT: Trace B/L LE edema
NEURO: Gross non-focal
SKIN: No rash
[2025-01-16] MEDS: SPIRIVA RESPIMAT 2.5 MCG 2 PUFF INH (11:51)
[2025-01-16] MEDS: ADVAIR HFA 230/21 MCG INHALER 2 PUFF INH ×2 (11:51→19:16)
[2025-01-16 11:58] VITALS: BP 140/63
--- NOTE | 2025-01-16 14:54 | CM ---
Patient seen at bedside with physicians in [facility]. Patient for further testing, CM will send referral for nebulizer when patient confirms which DME or pharmacy she would like to use. CM will continue to follow for discharge planning needs.
Plan; home with no needs/DME pending
--- NOTE | 2025-01-16 15:13 | W.PN.HOSP.TC ---
Today's Communication/Plan
-
apprec pulm
consult ENT
await V/Q scan
Assessment / Plan
Assessment / Plan
Pt is a 69 year old female
acute wheezing with chest tightness with acute hypoxemic resp insufficiency--unclear cause--likely COPD exacerbation but cannot rule out laryngeal dyskinesia, vocal cord spasm, etc...--apprec pulm--consult ENT--agree with IV steroids--CT scan neg
for PE, V/Q scan pending--off O2, cont budesonide--cont doxycycline
right upper lobe s/p wedge resection/Hx of R pneumothorax/Hx of lung nodules followed by PCP for 5 years now without patient reported changes/Reactive mediastinal lymphadenopathy reactive due to Mild bilateral bronchitis/COPD exacerbations/Hx of
Mediastinoscopy--will need pulm follow up as outpt
Dizziness on ambulation with neg orthostatic VS--pro-BNP 548, Echo: Ef 66%, normal RV size and function, mild-moderate AR, no regional wall motion issues--troponin neg--Cardiology consult:might benefit from outpatient perfusion stress test
PTSD/Anorexia/Bulimia/Depression/Anxiety--apprec psych--cont Xanax
Left nephrectomy due to RCC
Sjogren disease
Hx of CVA
DVT proph-- Lovenox
Code status--Full code
Anticipated Discharge: 24 - 48 hours
Subjective/Interval History
-
Date of Service: January 16, 2025
pt c/o upper airway tightness and wheezing relieved by Xanax
Objective Data
-
Labs:
Laboratory Results
01/16/25
05:02
Sodium 139
Potassium 3.5
Chloride 103
Carbon Dioxide 30
BUN 35 H
Creatinine 0.8
Glucose 86
Calcium 9.5
Vital Signs:
max temp for 24 hours
01/15/25
19:41
Temp 98.3 F
Vital Signs
Temp Pulse Resp BP Pulse Ox
97.8 F 80 16 140/63 95
01/16/25 11:58 01/16/25 11:58 01/16/25 11:58 01/16/25 11:58 01/16/25 11:58
I&O
01/15/25 01/16/25 01/17/25
06:59 06:59 06:59
Intake Total 1540 / 1540 1140 / 1140
Balance 1540 / 1540 1140 / 1140
Review of Systems
-
All other systems: Reviewed and negative
Physical Exam
-
General: Well Developed, Well Nourished and No Apparent Distress
HEENT: Normocephalic and Atraumatic; Negative Oxygen
Respiratory: Wheezes (upper airway)
Cardiac: Regular Rhythm and S1/S2; Negative Murmur
GI: Soft, Nontender, Nondistended and Normal Bowel Sounds
Musculoskeletal: No Clubbing, No Cyanosis and No Edema
Neuro: Awake and Alert
Psych: Calm
[2025-01-16 15:47] VITALS: BP 130/57
[2025-01-16] MEDS: LIPITOR 40 MG PO (17:20)
[2025-01-16] MEDS: LOVENOX 40 MG SC (17:20)
[2025-01-16] MEDS: DECADRON 4 MG IV (19:51)
[2025-01-16 19:54] VITALS: BP 121/58
[2025-01-16] MEDS: BENADRYL 25 MG PO (21:36)
[2025-01-16] MEDS: DESYREL 150 MG PO (21:36)
[2025-01-16 23:16] VITALS: BP 119/69
[2025-01-17 03:07] VITALS: BP 134/59
[2025-01-17 06:00] VITALS: BMI 22.6
[2025-01-17] MEDS: SPIRIVA RESPIMAT 2.5 MCG 2 PUFF INH (07:51)
[2025-01-17] MEDS: ADVAIR HFA 230/21 MCG INHALER 2 PUFF INH (07:51)
[2025-01-17] MEDS: TYLENOL 650 MG PO (07:58)
[2025-01-17] MEDS: XANAX 0.25 MG PO (07:58)
[2025-01-17] MEDS: LOW STRENGTH ASPIRIN 81 MG PO (07:59)
[2025-01-17] MEDS: LASIX 20 MG PO (07:59)
[2025-01-17] MEDS: PROZAC 60 MG PO (07:59)
[2025-01-17] MEDS: VIBRAMYCIN 100 MG PO (07:59)
[2025-01-17 08:00] VITALS: BP 154/71
[2025-01-17] MEDS: NON-FORMULARY ITEM 1 UNIT TOPICAL ×2 (08:00)
[2025-01-17] MEDS: DIOVAN 80 MG PO (08:00)
[2025-01-17 08:11] LABS: Hematocrit 35.3 % (37.0-47.0); Hemoglobin 12.0 g/dL (12.0-16.0); Mean Corp Hgb Conc. 34.0 g/dL (33.0-37.0); Mean Corpuscular Volume 88.7 fL (81.0-99.0); Platelet Count 190 10^3/uL (130-400); Red Cell Dist. Width 13.8 % (11.5-14.5)
[2025-01-17 08:45] LABS: ALT (SGPT) 23 U/L (0-35); AST (SGOT) 24 U/L (14-36); Albumin 4.3 g/dl (3.5-5.0); Alkaline Phosphatase 92 U/L (38-126); Blood Urea Nitrogen 31 mg/dl (7-17); Calcium 9.5 mg/dl (8.4-10.2); Carbon Dioxide 26 mmol/L (22-30); Chloride 104 mmol/L (98-107); Estimated Creatinine Clearance 73 ml/min; Glucose 92 mg/dl (70-99); Magnesium 2.1 mg/dl (1.6-2.3); Potassium 4.1 mmol/L (3.5-5.1); Sodium 139 mmol/L (135-145); Total Protein 6.9 g/dl (6.3-8.2); eGFR > 60.00
[2025-01-17] MEDS: DECADRON IV (08:49)
--- NOTE | 2025-01-17 09:11 | W.PN.PUL3 ---
Today's Communication / Plan
-
VQ scan negative, ENT eval w/o VCD noted on laryngoscope
Prednisone taper, she had reaction to IV steroids
Anxiety may be a factor given improvement with xanax
We discussed further w/u as OP
Discharge planning per team
Assessment
-
69-year-old former smoking female with a history of renal cell carcinoma, left foot osteomyelitis, cardiomyopathy who presented with shortness of breath and chest tightness and it is unclear whether there was cardiac or pulmonary etiologies to her
shortness of breath-pulmonary was consulted to assess if there are pulmonary causes of her shortness of breath 01/13/25.
Chest tightness and shortness of breath, anxiety a component
R/o VCD
Suspect AE COPD
Severe obstructive lung disease, positive bronchodilator response
Mild patchy mosaic pattern per my review, upon reviewing CT imaging
Conditions present prior to admission:
Cardiomyopathy.
Renal cell carcinoma.
Anxiety/depression.
Spontaneous pneumothorax �2.
Former smoker.
Sjogren syndrome.
Left foot osteomyelitis.
Left nephrectomy. Right thoracotomy. Cervical fusion. Left oophorectomy. Left foot surgery. Cholecystectomy. Appendectomy. Hernia repair. Mediastinoscopy Breast biopsy
Plan/recommendation
At this time, patient appears to be comfortable but has chronic symptoms of shortness of breath, chest tightness
Chest exam with mild end expiratory wheeze and bibasilar crackles--seems upper airway predominant--could be component of VCD
I did review her imaging. I do feel there is a mild mosaic pattern
This is typically seen in airways disease and can rarely be seen in thromboembolic disease. Low suspicion for thromboembolic disease at this time
CT chest without evidence of pulm embolism
Spirometry confirms severe obstructive lung disease with bronchodilator response, and mild restrictive process
We discussed treatment for AECOPD and anxiety
Will place on maximal inhaler therapy to continue as OP
Increase prednisone to IV decadron--had hives, will transition back to prednisone
VQ scan negative
She notes prior history of pulmonary sarcoid and CTD but did not follow up w/ Pulmonary for many years as OP
It is interesting that she has Sjogren syndrome
Whether this may be playing a role with her underlying pulmonary process remains to be determined
We discussed further OP FU would be needed
Anxiety is likely a component if only thus far Xanax has been helpful
Less likely infection
Placed on antibiotics-on doxycycline-can likely stop
ENT eval, no VCD noted
Cardiology correspondence reviewed.
Doubt cardiac etiology but patient was given Lasix. She thinks it may have helped a little bit
DVT prophylaxis-on Lovenox.
Nutrition
Early mobilization.
Outpatient pulmonary follow-up, including full PFTs and follow-up CT chest
Discharge planning per team
Studies:
Chest x-ray 01/12/25-NAD.
CT chest 01/13/[address] evidence for acute pulmonary thromboembolism, mild bilateral bronchitis, bilateral tiny centrilobular nodules suggesting mild infection or inflammatory bronchiolitis.
Echocardiogram 01/13/25-EF 66%, right ventricular size and systolic function normal, mild to moderate aortic regurgitation
Total time spent on this consultation/encounter __45__ minutes which includes review of history, physical exam, medications, laboratory data, personal review of imaging, extensive review of outpatient records, discussion with care team and
respiratory therapy.
Subjective Data
-
Date of Service:
Date of Service: January 17, 2025
Chief Complaint: Pulmonary Follow Up
Subjective:
No new complaints, stable on RA
Still has upper airway pain/wheezing, no changes while on prednisone/IV steroids
She notes hives with decadron
Objective Data
Data Reviewed
Vital Signs / I&O / Oxygen:
Vital Signs
Temp Pulse Resp BP Pulse Ox
97.6 F 66 18 154/71 95
01/17/25 08:00 01/17/25 08:00 01/17/25 08:00 01/17/25 08:00 01/17/25 08:00
Intake and Output
01/16/25 01/17/25 01/18/25
06:59 06:59 06:59
Intake Total 1140 / 1140 920 / 920
Balance 1140 / 1140 920 / 920
SaO2 95
Nasal Cannula flow liters per 2
minute
Physical Exam
General: Comfortable
HEENT: Normocephalic and Anicteric
Cardiovascular: S1-S2, Regular Rhythm, Murmur (n) and Rub (n)
Respiratory: Wheeze (Mild expiratory, upper lung field predominant, none posteriorly), Crackles (Mild at base), Rhonchi (n), Non-Labored Respirations and Stridor (n)
GI: Soft, Non Distended and Non Tender
Neurology: Awake, Alert, Oriented and No Motor Deficits
Skin: Cyanosis (n), Jaundice (n) and Rash (n)
Labs/Micro/Reports
Lab Data
01/17/25 06:40
01/17/25 06:40
--- NOTE | 2025-01-17 10:07 | PTCARENOTE ---
Told in handoff report that after IV decadron dose last night, patient developed redness and itchiness on back extending down to right leg. PRN benadryl dose was given and symptoms resolved. Patient denies feeling SOB or wheezing at that time.
Jeni made aware this AM, instructed to hold dose this morning. Plan of care ongoing.
--- NOTE | 2025-01-17 11:15 | W.CON.OTO ---
Otolaryngology Consult
Consult
Date/Time Consultation Performed: 01/17/2025
Requesting Provider: Kandi Jeronimo
Performing Provider: Rhett Pompa
Reason for Consultation: Shortness of Breath
Chief Complaint
Shortness of breath and wheeze with expiration
History of Present Illness
Ms. Steele is a 69-year-old female who was admitted to [facility] several days ago with shortness of breath. She complains of tightness in her chest and shortness of breath on exertion. She also notes an expiratory wheeze. She has had
the symptoms on and off for quite some time. However over the last several weeks they have become acutely worse. as a result she came to [facility] for treatment. She denies any significant cough or phlegm. She has a mildly raspy
voice. She denies any significant difficulty swallowing, although she has some mild irritation in her throat which she attributes to her inhalers. She denies any recent illnesses. There are no reported fevers or chills. She does have a remote
tobacco use history and smoked 1 pack/day for 15 years.
Medical History
Additional Past Medical History:
Cardiomyopathy. Renal cell carcinoma. Anxiety/depression. Spontaneous pneumothorax �2. Former smoker. Sjogren syndrome. Left foot osteomyelitis
Additional Past Surgical History:
Left nephrectomy. Right thoracotomy. Cervical fusion. Left oophorectomy. Left foot surgery. Cholecystectomy. Appendectomy. Hernia repair. Mediastinoscopy. Breast biopsy.
Patient Allergies:
Allergies
Allergy/AdvReac Type Severity Reaction Status Date / Time
albuterol Allergy Unknown Verified 01/12/25 18:55
codeine AdvReac panic Verified 01/12/25 18:55
attacks
hydrocodone (From Vicodin) AdvReac Nausea / Verified 01/12/25 18:55
Vomiting
Home Medications / Current Medications:
�Medication �Instructions �Recorded
Benadryl 25 mg PO HS Sleep 01/13/25
fluoxetine 20 mg capsule 60 mg PO DAILY Depression 01/15/25
Physical Exam
Vitals / Labs:
Vital Signs
Temp 97.6 F 01/17/25 08:00
Temp route: Oral 01/17/25 08:00
Pulse 66 01/17/25 08:00
Rhythm: Normal sinus rhythm 01/17/25 08:00
With- First Degree Heart Block, Sinus bradycardia 01/17/25 08:00
Resp Rate 18 01/17/25 08:00
Blood pressure 154/71 01/17/25 08:00
Blood pressure extremity used: Left upper arm 01/17/25 08:00
Position: Lying 01/17/25 08:00
MAP (cuff-Lynsey Monitor) 84 01/13/25 06:00
SaO2 95 01/17/25 08:00
Nasal Cannula flow liters per minute 2 01/13/25 11:00
Oxygen Mode of Delivery Room air 01/17/25 08:00
Acceptable pain level during hospitalization? 0 01/12/25 18:55
Can the patient verbally communicate their pain? Yes 01/17/25 08:58
Pain scale ratin 01/17/25 08:58
Actual Weight 65.487 kg 01/17/25 06:00
Body Mass Index (BMI) 22.6 01/17/25 06:00
Supine- Blood Pressure 100/69 01/14/25 10:04
Supine- Pulse 61 01/14/25 10:04
Sitting- Blood Pressure 160/65 01/14/25 10:04
Sitting- Pulse 66 01/14/25 10:04
Standing- Blood Pressure 166/77 01/14/25 10:04
Standing- Pulse 75 01/14/25 10:04
Blood pressure extremity used: Right upper arm 01/14/25 10:04
Mode BP taken: Automatic 01/14/25 10:04
Oxygen Saturation with Activity 97 01/15/25 15:48
Lab Results
01/17/25 06:40
01/17/25 06:40
Exam:
The patient is awake, alert, oriented, in no acute distress.
No audible stridor noted, no respiratory distress.
Mild expiratory wheeze noted with forced expiration by patient.
Head is normocephalic and atraumatic.
Nasal cavity clear anteriorly, septum mildly deviated to the right side.
Oral cavity and oropharynx unremarkable, no mucosal lesions, masses or neoplasms visualized, no exudate or erythema at posterior pharynx.
Neck soft and supple, no lymphadenopathy or masses palpable.
Flexible fiberoptic laryngoscopy performed at the bedside. Scope easily passed through the left nasal cavity. Nasopharynx clear. Oropharynx unremarkable. Base of tongue, vallecula, epiglottis, aryepiglottic folds, arytenoids, piriform sinuses
and postcricoid area clear. Lateral and posterior pharyngeal wilson unremarkable. True vocal folds normal on visualization. Normal movement with phonation noted. Normal movement with expiration noted. Patient did produce an audible expiratory
wheeze during forced expiration. However the vocal folds were in their full lateral positions. The subglottis appeared to be clear.
Assessment / Plan
69-year-old female with shortness of breath and wheezing with expiration.
- Flexible fiberoptic laryngoscopy performed at the bedside.
- No evidence of vocal fold dyskinesia.
- Larynx was widely patent with expiration.
- No mass or neoplasm noted in upper aerodigestive tract.
- There is no visible source for airway blockage in the upper aerodigestive tract.
- Would recommend continued medical management by medical team and pulmonary.
- Please contact us if there are any changes to the patient's condition.
- Patient can follow-up as outpatient as needed.
Data Reviewed
Radiology: Image Personally Visualized and interpreted ( CT scan of chest reviewed. Subglottis appears to be clear.)
Lab Data: Labs Reviewed by me
[2025-01-17 12:10] VITALS: BP 129/70
--- NOTE | 2025-01-17 13:16 | W.PN.UPDATE ---
Update Note
Progress Note Update
pt seen briefly yesterday and again today. Pleasant, happy to be getting a workup for troubling symptoms. Discussed history of ptsd and many psychiatric treatments over the years. Grateful for the addition of a small dose of xanax to her regimen,
getting relief. Does not think her current symptoms are related to anxiety since has had lab evidence of illness. Has prescriber who will continue with her proxac, trazodone and xanax. No further concerns.
--- NOTE | 2025-01-17 13:24 | W.PN.HOSP.TC ---
Today's Communication/Plan
-
d/c
Assessment / Plan
Assessment / Plan
Pt is a 69 year old female
acute wheezing with chest tightness with acute hypoxemic resp insufficiency--unclear cause--likely COPD exacerbation, ruled out laryngeal dyskinesia, vocal cord spasm--apprec ENT/pulm--did not tolerate IV steroids--CT scan neg for PE, V/Q scan
neg--off O2, cont budesonide--cont doxycycline
right upper lobe s/p wedge resection/Hx of R pneumothorax/Hx of lung nodules followed by PCP for 5 years now without patient reported changes/Reactive mediastinal lymphadenopathy reactive due to Mild bilateral bronchitis/COPD exacerbations/Hx of
Mediastinoscopy--will need pulm follow up as outpt
Dizziness on ambulation with neg orthostatic VS--pro-BNP 548, Echo: Ef 66%, normal RV size and function, mild-moderate AR, no regional wall motion issues--troponin neg--Cardiology consult:might benefit from outpatient perfusion stress test
PTSD/Anorexia/Bulimia/Depression/Anxiety--apprec psych--cont Xanax
Left nephrectomy due to RCC
Sjogren disease
Hx of CVA
DVT proph-- Lovenox
Code status--Full code
Anticipated Discharge: Today
Subjective/Interval History
-
Date of Service: January 17, 2025
pt without c/o--seen by pulm and ENT--OK for d/c
Objective Data
-
Labs:
Laboratory Results
01/17/25
06:40
WBC 6.7
Hgb 12.0
Hct 35.3 L
Plt Count 190
Sodium 139
Potassium 4.1
Chloride 104
Carbon Dioxide 26
BUN 31 H
Creatinine 0.7
Glucose 92
Calcium 9.5
Total Bilirubin 0.3
AST 24
ALT 23
Alkaline Phosphatase 92
Vital Signs:
max temp for 24 hours
01/17/25
03:07
Temp 98.1 F
Vital Signs
Temp Pulse Resp BP Pulse Ox
98.2 F 73 18 129/70 98
01/17/25 12:10 01/17/25 12:10 01/17/25 12:10 01/17/25 12:10 01/17/25 12:10
I&O
01/16/25 01/17/25 01/18/25
06:59 06:59 06:59
Intake Total 1140 / 1140 920 / 920
Balance 1140 / 1140 920 / 920
Review of Systems
-
All other systems: Reviewed and negative
Physical Exam
-
General: Well Developed, Well Nourished and No Apparent Distress
HEENT: Normocephalic; Negative Atraumatic or Oxygen
Respiratory: Clear to Auscultation; Negative Wheezes
Cardiac: Regular Rhythm and S1/S2; Negative Murmur
GI: Soft, Nontender, Nondistended and Normal Bowel Sounds
Musculoskeletal: No Clubbing, No Cyanosis and No Edema
Neuro: Awake
Psych: Calm
--- NOTE | 2025-01-17 14:29 | W.PN.UPDATE ---
Update Note
Progress Note Update
Recommend Lasix 20 mg PO daily and will arrange cardiology follow up.
--- NOTE | 2025-01-17 14:41 | W.DCSUMMARY ---
Discharge Summary
Discharge Data
Date of Admission: 01/13/25
Date of Discharge: 01/17/25
-
Pending Results: No
Hospital Course
Primary care physician : Ajit Haider
Principal Discharge diagnosis : Acute hypoxemic respiratory insufficiency with acute wheezing and chest tightness
Chronic Discharge diagnosis : Status post wedge resection of right upper lobe, history of right pneumothorax, history of lung nodules, history of mediastinal lymphadenopathy, history of bilateral mild bronchitis, chronic obstructive pulmonary
disease, history of mediastinal anoscopy, posttraumatic stress disorder, anorexia, bulimia, depression, anxiety, Sjogren's disease, history of stroke
Hospital Course : Patient is a 69-year-old female with a significant history for left nephrectomy for renal cell cancer, left foot osteomyelitis and cardiomyopathy who presented complaining of chest tightness and shortness of breath. Patient stated
symptoms were present for several weeks but were gradually getting worse. She described a sense of chest tightness. She has noted progressive shortness of breath at these times as well. She denied cough, fevers, chills, GI, or complaints. She
had an RSV infection approximately 3 years prior and symptoms were similar to this at that time. Patient was admitted.
Problem #1: Acute hypoxemic respiratory insufficiency with acute wheezing and chest tightness. Patient was seen in consultation by pulmonary, cardiology, and ENT. Patient had a CT scan of her chest which was negative for pulmonary embolism, and a
VQ scan which was also negative and showed low probability for PE. She was weaned off oxygen and started on nebulizer treatments and budesonide. ENT was consulted as the patient had more upper airway wheezing and concern was for laryngeal
dyskinesia versus vocal cord spasm. There were no abnormalities found by ENT's evaluation. Cardiology has recommended new medications. Echocardiogram done showed normal left ventricular size and function with an ejection fraction of 66%. She
should follow-up with cardiology as an outpatient. Patient also had pulmonary function test done on 01/13/2025. There was a difference of opinion between milk route supervisor regarding chronic obstructive pulmonary disease versus not. Given the patient's
history, it is recommended she follow-up as an outpatient with pulmonary. Patient was placed on oral prednisone with improvement. IV steroids with Decadron were started but the patient had an adverse reaction and this was no longer given during
her hospitalization. She will be sent home on a prednisone taper.
Problem #2: All other medical issues. These include Status post wedge resection of right upper lobe, history of right pneumothorax, history of lung nodules, history of mediastinal lymphadenopathy, history of bilateral mild bronchitis, chronic
obstructive pulmonary disease, history of mediastinal anoscopy, posttraumatic stress disorder, anorexia, bulimia, depression, anxiety, Sjogren's disease, history of stroke. These medical issues were stable during her hospitalization. Medications
were continued as able.
Patient is stable for discharge home at this time. If there are any questions regarding this dictation or her hospital stay, please do not hesitate to call. Our office number is [phone].
Time for discharge 35 minutes.
Discharge Plan
-
Patient Disposition: Home (Routine Discharge)
Discharge Diagnosis/Procedures: Acute hypoxemic respiratory insufficiency with wheezing and chest tightness likely chronic obstructive pulmonary disease exacerbation, posttraumatic stress disorder/anorexia/bulimia/depression/anxiety, history of
stroke, history of Sjogren's disease
Condition: Good
Diet: As tolerated, Regular and 2 Gram Sodium
Activity: No restrictions
Driving Restrictions: As prior to admission
Bathing Restrictions: None
Specialty Instructions: Weigh Daily- Call MD for wt gain/loss 3 lbs overnight/5 lbs in 1 week
Referrals:
Aijt Haider DO [Family Provider, Family Practice] - in less than 1 week
Lon Abdi MD [Active, Pulmonary Medicine]
Referral Note: [employer] visit in 2 weeks (30 min)
[place]/walk test
MD visit in 2-3 mo ([place] or [place]) needs full PFT (30 min)
Prescriptions:
New
doxycycline hyclate 100 mg Capsule
100 mg PO Q12 7 Days Qty: 14 0RF
atorvastatin 40 mg Tablet
40 mg PO QPM Qty: 30 0RF
valsartan 80 mg Tablet
80 mg PO DAILY Qty: 30 0RF
aspirin 81 mg Tablet,Chewable
81 mg PO DAILY Qty: 0 0RF
furosemide 20 mg Tablet
20 mg PO DAILY Qty: 30 0RF
fluticasone propion-salmeterol 230-21 mcg/actuation Hfa Aerosol Inhaler
2 puff inhalation R BID Qty: 12 0RF
Spiriva Respimat 2.5 mcg/actuation Mist
2 puff inhalation R DAILY Qty: 4 0RF
prednisone 10 mg Tablet
See Rx Instructions .ROUTE .COMPLEX Qty: 30 0RF
Rx Instructions:
Take By Mouth:
40 mg daily x3 days, 30 mg daily x3 days,
20 mg daily x3 days, 10 mg daily x3 days.
Continued
alprazolam 0.25 MG tablet
0.25 mg PO Q8HPRN PRN (Reason: anxiety)
Rx Instructions:
Takes maybe 4x a year
trazodone 100 MG tablet
150 mg PO HS
Benadryl
25 mg PO HS
fluoxetine 20 mg capsule
60 mg PO DAILY
Discontinued
acetaminophen 325 MG tablet
650 mg PO Q4HPRN PRN (Reason: CH, mild pain, or temp >100.4F) Qty: 30 0RF
Discharge Orders:
Discharge Patient (As Directed); Ordered 01/17/25
Ordered By: Kandi Ngo
Discharge Date and Time
Print Language: VIET[place]ESE
[2025-01-17] MEDS: DELTASONE 40 MG PO (15:05)
== END 2025-01-17 16:53 | disposition home or self-care (01) ==
LOC: 4 WEST ACU 05:08
PROVIDERS: Emergency Medicine; ADMITTING PHYSICIAN Hospitalist; ATTENDING PHYSICIAN Internal Medicine; CONSULT PHYSICIAN Internal Medicine Cardiovascular Disease; CONSULT PHYSICIAN Internal Medicine Critical Care Medicine; CONSULT PHYSICIAN Otolaryngology; CONSULT PHYSICIAN Psychiatry & Neurology Psychiatry; EMERGENCY PHYSICIAN Emergency Medicine; FAMILY PHYSICIAN Family Medicine
DX: J44.1 Chronic obstructive pulmonary disease with (acute) exacerbation (principal); R09.02 Hypoxemia; F41.9 Anxiety disorder, unspecified; F32.A Depression, unspecified; Z85.528 Personal history of other malignant neoplasm of kidney; J93.83 Other pneumothorax; Z87.891 Personal history of nicotine dependence; M35.00 Sjogren syndrome, unspecified; F43.10 Post-traumatic stress disorder, unspecified; J45.901 Unspecified asthma with (acute) exacerbation; Z79.899 Other long term (current) drug therapy; Z86.73 Personal history of transient ischemic attack (TIA), and cerebral infarction without residual deficits; M86.9 Osteomyelitis, unspecified; I06.1 Rheumatic aortic insufficiency; F50.029 Anorexia nervosa, binge eating/purging type, unspecified
CPT/HCPCS: 31575; 71046; 71275; 78582; 80048; 80053; 80061; 83735; 83880; 84484; 85025; 85027; 87502; 87807; 87811; 93005; 93306; 94060; 94640; 94760; 99285; A9540; A9567; G0378; Q9967

== ENCOUNTER → 2025-01-30 09:14 | Outpatient (REF) | payer BC, SELFPAY | LOC: RAD 09:14 | PROVIDERS: ATTENDING PHYSICIAN Family Medicine | DX: M86.9 Osteomyelitis, unspecified (principal) | CPT/HCPCS: 78315; A9503 ==

== ENCOUNTER 2025-05-20 15:27 | Emergency (ER) | payer OTHER, SELFPAY ==
[2025-05-20 15:29] VITALS: BP 148/87
[2025-05-20 15:59] VITALS: BMI 23.5
[2025-05-20 16:08] VITALS: BP 151/66
[2025-05-20] MEDS: PERCOCET 5/325 2 TABLET PO (17:07)
[2025-05-20 17:10] VITALS: BP 142/62
--- NOTE | 2025-05-20 17:31 | ED.GENMED ---
History of Present Illness
General
Chief Complaint: Extremity Pain (non-traumatic)
Source: patient
Time Seen by Provider: 05/20/25 15:47
History of Present Illness
History of Present Illness:
Note:
CHIEF COMPLAINT(S)
Pain in the left foot throughout the left leg up to the left hip.
HISTORY OF PRESENT ILLNESS
The patient is a 70-year-old female presenting with pain and swelling involving the left foot, initially localized over a surgically corrected toe. The patient reported that her left toe became blue around May 12. The patient underwent a
hammer toe correction procedure, performed by podiatry, with several previous surgeries on the same foot. Since the surgery, the patient has experienced increasing pain, which now radiates all the way up to her hip and thigh. The patient has had
nerve injections in the back due to lower extremity nerve issues.
The patient remarked, 'The last three days, its been worse than its ever been,' indicating an exacerbation. The pain is associated with numbness over the foot but not higher up the leg. The patient expressed concern about potential surgical
complications such as infection or vascular issues, although current examination revealed good arterial pulses via palpation and no evidence of infection. The foot exhibits minor sensitivity over the lateral aspect.
EXTERNAL RECORDS REVIEWED
The patient presented a comprehensive medical history document detailing extensive past interventions and treatments, including surgical records for the left foot.
CHRONIC MEDICAL CONDITIONS SIGNIFICANTLY AFFECTING CARE
The patient has complex regional pain syndrome (CRPS) and a history of receiving nerve injections, most recently documented since 2016, although not recently administered.
PAST MEDICAL HISTORY
Significant for complex regional pain syndrome and kidney cancer.
PAST SURGICAL HISTORY
Multiple surgeries on the left foot for hammer toe correction, infection treatment, and implant removal.
REVIEW OF SYSTEMS
- Cardiovascular: No edema.
- Neurological: Pain radiating from the foot to the hip; numbness noted in the foot.
- Musculoskeletal: Sensitivity over the lateral aspect of the lower extremity; no palpable cords.
PHYSICAL EXAM
- General: Alert, no acute distress. No respiratory distress.
- Cardiovascular: Normal peripheral perfusion, no edema. Normal posterior tibial and dorsalis pedis pulses. Bilaterally.
- Neurological: Alert, oriented, minor sensitivity to the skin over the lateral aspect of the foot and lower extremity.
- Musculoskeletal: Status post-operative for left fourth digit; no redness, swelling, or discoloration; well-healed surgical site. No palpable cords. No edema. Normal distal cap refill.
PROBLEM LIST
Acute Problems:
- Pain radiating from the left foot to the hip.
- Numbness in the left foot.
Chronic Problems:
- History of complex regional pain syndrome.
- Recurrent left foot issues secondary to multiple surgical interventions.
PLAN
1. Perform an ultrasound to rule out deep vein thrombosis.
2. Prescribe pain management with oxycodone, noting previous efficacy, and provide an immediate dose.
3. Monitor for potential nerve-related issues if imaging yields no vascular concerns.
DIFFERENTIAL DIAGNOSIS
The differential diagnosis includes, in no particular order and is not limited to:
1. Complex regional pain syndrome exacerbation
2. Post-surgical complication
3. Nerve impingement or sciatica
4. Vascular compromise
5. Infection
6. Thrombosis
7. Peripheral neuropathy
8. Trauma to surrounding tissues
9. Osteoarthritis
10. Referred pain from hip pathology.
Disposition:
SUMMARY OF ENCOUNTER
The patient is a 70-year-old female with a recent history of hammer toe surgery, presenting with pain and swelling extending from the lateral aspect of the left foot to the thigh up to the hip and near the buttocks. The patients history includes
past SI joint injections and chronic nerve issues necessitating previous interventions. The surgical site on the toe was observed to be warm, well-perfused, with normal capillary refill and pulses, and no signs of infection noted. Given the patients
presentation and history, although DVT was initially considered, an ultrasound was planned to definitively rule out this condition. Neuropathic pain is suspected, potentially as a manifestation of her known complex regional pain syndrome. Oxycodone
has previously provided relief to the patient, suggesting pain management efficacy.
PLAN
1. Perform an ultrasound of the left lower extremity to rule out deep vein thrombosis.
2. If ultrasound is negative, manage suspected neuropathic pain, potentially related to chronic regional pain syndrome.
3. Continuation of pain management with oxycodone is considered, noting past relief.
4. Consideration of steroid treatment and comprehensive pain control as part of neuropathic pain management.
MEDICATION RECONCILIATION
- Continue oxycodone for pain management, as it has shown past efficacy.
MEDICAL DECISION MAKING
- Number and Complexity of Problems Addressed: Chronic conditions affecting care [complex regional pain syndrome, history of SI joint injections, and nerve issues].
- Data:
Category 1
- External record reviewed: Reviewed patients comprehensive medical history, including previous interventions and treatment for the left foot.
- Discussed screening for deep vein thrombosis with an ultrasound to eliminate vascular complications, favoring a diagnosis of neuropathic pain if negative.
- Risk:
Prescription medication was prescribed: Oxycodone for pain management. The risk associated with opioid use is acknowledged due to potential dependencies, but therapeutic benefit outweighs the possible risk given the patients complex pain history.
DIAGNOSIS
- Neuropathic pain (ICD-10: G89.4)
- Complex regional pain syndrome (ICD-10: G90.522)
Past History
Past History
ED Past Medical History: None
ED Past Surgical History: Gynecological
Social History
Tobacco: Non-smoker
Alcohol: None
Drug: None
Personal:
Living: with family
Phy Exam
Physical Exam
Physical Exam:
.
Course
Orders/Labs/Results
Orders:
Orders
05/20/25 17:02
US Periph Venous LOWER Ext LT Urgent
Comment:
Reason For Exam: pain, s/p foot surgery
05/20/25 17:03
Oxycodone/Acetaminophen [Percocet 5/325] 2 tablet PO NOW STA
05/20/25 18:52
Prednisone [Deltasone] 50 mg PO NOW STA
Vital Signs
Initial and Last Documented VS:
Initial Vital Signs
Temp Pulse Resp BP Pulse Ox
98.3 F 79 19 148/87 98
05/20/25 15:29 05/20/25 15:29 05/20/25 15:29 05/20/25 15:29 05/20/25 15:29
Last Documented Vital Signs
Temp Pulse Resp BP Pulse Ox
98.3 F 64 17 139/60 95
05/20/25 18:37 05/20/25 18:37 05/20/25 18:37 05/20/25 18:37 05/20/25 18:37
*Pulse Oximetry
SaO2: 95
Oxygen Mode of Delivery: Room air
Patient hypoxic: no
*Critical Care Note
Total Time (30-74mins, 75-104mins- exclusive of procedures): Not Applicable
ED Attending Note
-
Portions of this chart may have been created with voice recognition software.� Occasional wrong word or��sound alike� substitutions may have occurred due to the inherent limitations of voice recognition software.
Discharge Plan
Departure
Patient Disposition: Home (Routine Discharge)
Date of Disposition: 05/20/25
Time of Disposition: 19:19
Patient with high blood pressure during this ER visit?: Yes
Condition: Good
Discharge Problem:
Neuropathic pain
Instructions: Radiculopathy of the neck and back (including sciatica), BLOOD PRESSURE
Prescriptions:
New
prednisone 10 mg Tablet
See Rx Instructions .ROUTE .COMPLEX Qty: 45 0RF
Rx Instructions:
Take By Mouth:
50 mg daily x3 days, 40 mg daily x3 days,
30 mg daily x3 days, 20 mg daily x3 days,
10 mg daily x3 days
oxycodone-acetaminophen [Percocet] 5-325 mg tablet
2 tab PO Q4HPRN PRN (Reason: pain) Qty: 10 0RF
No Action
alprazolam 0.25 MG tablet
0.25 mg PO Q8HPRN PRN (Reason: anxiety)
Rx Instructions:
Takes maybe 4x a year
trazodone 100 MG tablet
150 mg PO HS
Benadryl
25 mg PO HS
fluoxetine 20 mg capsule
60 mg PO DAILY
doxycycline hyclate 100 mg Capsule
100 mg PO Q12 7 Days Qty: 14 0RF
atorvastatin 40 mg Tablet
40 mg PO QPM Qty: 30 0RF
valsartan 80 mg Tablet
80 mg PO DAILY Qty: 30 0RF
aspirin 81 mg Tablet,Chewable
81 mg PO DAILY Qty: 0 0RF
furosemide 20 mg Tablet
20 mg PO DAILY Qty: 30 0RF
fluticasone propion-salmeterol 230-21 mcg/actuation Hfa Aerosol Inhaler
2 puff inhalation R BID Qty: 12 0RF
Spiriva Respimat 2.5 mcg/actuation Mist
2 puff inhalation R DAILY Qty: 4 0RF
prednisone 10 mg Tablet
See Rx Instructions .ROUTE .COMPLEX Qty: 30 0RF
Rx Instructions:
Take By Mouth:
40 mg daily x3 days, 30 mg daily x3 days,
20 mg daily x3 days, 10 mg daily x3 days.
Referrals:
Ajit Haider DO [Family Provider, Family Practice]
Activity Restrictions/Additional Instructions:
Please see your doctor in the next 3 to 5 days for follow-up and reevaluation. Return immediately for discoloration of the toes, worsening pain, swelling, fevers or any other concerns. Please see your interior decorator painting for further
follow-up as well.
Interventions
Interventions:
*General Assessment Last Done: 05/20/25 15:30
*Neglect/Abuse Screening Last Done: 05/20/25 15:31
*ED COVID-19 Vaccine History Last Done: 05/20/25 15:30
*ED Influenza Vaccine History Last Done: 05/20/25 15:30
[facility] Fall Risk Assessment Tool Last Done: 05/20/25 16:00
*Risk Screen - Suicide (C-SSRS) Last Done: 05/20/25 15:30
ED-Skin Assessment Last Done: 05/20/25 16:06
ED-Peripheral Vascular Assessment Last Done: 05/20/25 16:06
ED-Musculoskeletal Assessment Last Done: 05/20/25 16:02
Discharge Date and Time
Print Language: COMORAN
[2025-05-20 18:37] VITALS: BP 139/60
[2025-05-20] MEDS: DELTASONE 50 MG PO (19:13)
== END 2025-05-20 19:40 | disposition home or self-care (01) ==
LOC: EMR 15:27
PROVIDERS: EMERGENCY PHYSICIAN Emergency Medicine; FAMILY PHYSICIAN Family Medicine
DX: M79.2 Neuralgia and neuritis, unspecified (principal); R22.42 Localized swelling, mass and lump, left lower limb
CPT/HCPCS: 99284; 93971